=== PATIENT | male | born 1955 | race Caucasian/White ===

== ENCOUNTER 2024-07-29 08:35 | Outpatient (AMB) | payer MEDICARE, SELFPAY ==
--- NOTE | 2024-07-29 08:45 | A.SPINEOV_ITS ---
Vital Signs 07/29/24 08:54 Height 5 ft 10 in Weight 195 lb BMI 28.0 Intake Visit Reasons: neck and shoulder pain Intake Note: Mr. Vallejo is here today c/o neck and shoulder pain. [employer] Required: No Allergies No Known Allergies Allergy (Verified 07/29/24 08:53) Physical Exam Vital Signs: BMI result Body Mass Index 28.0 Assessment & Plan Assessment & Plan (1) Cervical radiculopathy: Code(s): M54.12 - Radiculopathy, cervical region Category: Medical (2) Syrinx of spinal cord: Code(s): G95.0 - Syringomyelia and syringobulbia Category: Medical Plan Dear Nicolasa, Thank you for referring Mr Vallejo to our office today. He is a very nice 68-year-old gentleman with a previous right C5-6 posterior cervical foraminotomy done by Dr. Coronel at [facility] about 15 years ago who presents now with a on and off persistent posterior neck pain radiating down across his shoulder into his mid biceps region. It has been going for 6 or 8 months pretty consistently bothering him. He has trouble getting positioned well at night. He once he is asleep he seems to do okay. He is very active, restoring at [address] and is able to do most activities throughout the day but it does bother him quite a bit at times. He takes Tylenol only because he can not take NSAIDs secondary to chronic kidney disease. He has had no dedicated conservative treatment. He had an MRI showing some degenerative disc disease and incidentally noted T2 syrinx. He sent to us for an evaluation. PMH: He has been a diabetic, insulin dependent for about 20 years, his A1c generally runs around the 7.5-8 range. History of hypertension, chronic kidney disease stage 3, history of a right shoulder surgery, previous cervical foraminotomy as outlined above. Denies any heart disease, strokes, liver disease, major abdominal surgeries, cancer, bleeding disorders Social hx: He does not smoke, drink use any recreational drugs Medications: Metformin, glimepiride, Lantus, Ozempic, simvastatin, lisinopril Allergies: None Physical exam: He is awake alert oriented no acute distress, strength is normal, gait normal, reflexes diminished throughout the upper and lower extremities, no hyperreflexia Imaging review: He has a cervical MRI done at the [facility] in April of 2024 showing degenerative disc disease of C5-6 and C6-7, worse at C5-6 where on the right there is a disc osteophyte compressing the right C6 nerve root. Incidentally noted 0.8 mm T2 spinal level syrinx. No associated edema with it. A follow-up contrast imaging study that was done in [place] did not reveal any evidence of enhancement. It was a poor quality study and a vertical upright MRI machine. Impression: 68-year-old gentleman with a previous history of a C5-6 posterior cervical foraminotomy done by Dr. Coronel about 15 years ago with good success now presents with similar recurrent symptoms but this time he has neck pain and it radiates down into his shoulder and mid biceps. He does have residual compre ssion of the C6 nerve root the C5-[address] Medeiros and I reviewed his imaging together, feel that this is probably part of the explanation of his symptoms, but he also has overlapping shoulder issues and is currently being worked up with Orthopedics for that. As long as we can exclude that the shoulder is not the primary source of his symptoms, we think he would be a good candidate for an anterior cervical fusion C5-6. We did however tell him that the insurance company will not approve surgery unless he participates in at minimum physical therapy. I gave him a referral for that. He will let me know how it goes with the PT and orthopedics consult and then we can arrange for surgery if needed. We did discuss all pertinent risks benefits of ACDF. With regard to the syrinx, he is currently having no active symptoms, no hyperreflexia no sensory loss. We suspect that this is an incidental finding but we will do our due diligence and do another MRI in 6 months just to follow this radiographically. It will be a thoracic MRI with and without gadolinium. He has anxiety issues in the MRI but I told him that the upright MRI that he had done in [place] was just too poor quality to trust it. I told him we would be happy to give him some Ativan or Valium to get through the MRI. He will let me know how he likes to proceed. Thank you for allowing us to care for your patient. The total time spent with this visit with this patient was 65 minutes reviewing history, physical exam, cervical and thoracic imaging review, and implementation of treatment plan or further diagnostic testing Addi Medeiros MD,PhD [facility] Orders: Orders PT Evaluation and Treatment Today M54.12 - Radiculopathy, cervical region Coding Level of Care Code New Pt Level 5 (14722) Diagnoses Cervical radiculopathy M54.12 Syrinx of spinal cord G95.0
[2024-07-29 08:54] VITALS: BMI 28.0
== END 2024-07-29 10:07 | disposition home or self-care (01) ==
PROVIDERS: Referring Provider Nurse Practitioner Family; Visit Provider Physician Assistant
DX: M54.12 Radiculopathy, cervical region (principal); G95.0 Syringomyelia and syringobulbia
CPT/HCPCS: 99205

== ENCOUNTER → 2024-07-29 08:35 | Outpatient (BNVA) | payer MEDICARE, SELFPAY | PROVIDERS: Visit Provider Physician Assistant | DX: M54.12 Radiculopathy, cervical region (principal); G95.0 Syringomyelia and syringobulbia | CPT/HCPCS: 99202 ==

== ENCOUNTER 2024-11-24 14:02 | Outpatient (AMB) | payer MEDICARE, SELFPAY ==
--- NOTE | 2024-11-24 14:06 | A.SPINEOV_ITS ---
Intake Visit Reasons: f/up after physical therapy Intake Note: Mr. Vallejo is here today to F/u after PT. 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 Please refer to my last note for the specifics of the problem. He had a previous right C6 foraminotomy done at [facility] by that did help when it was done a number of years ago, but now has had recurrent neck pain radiating down across his arm into his mid biceps region. He underwent physical therapy as we requested, and unfortunately that did not help. He continues to take Tylenol for the pain. He can not take Motrin because of limitations with his GFR and chronic kidney disease related to his diabetes. Last time we spoke with him, if conservative treatment failed we told him we would offer him an anterior cervical diskectomy and fusion at C5-6 based on [facility] showing some residual foraminal stenosis. The patient is back today and wishes to talk about surgery again. A secondary issue he had at the time was shoulder problems. He did go to the orthopedic doctor in this was excluded as part of his differential diagnosis. Also, he had a incidentally noted upper thoracic syrinx. He denies any symptoms of sensory loss, gait instability, bladder changes etc.. He was supposed to get a six- month follow-up MRI but he has severe anxiety about it, so it was never followed up. Overall, his gait and strength are normal. Not demonstrating any signs of hyperreflexia. We talked about the surgery in question for the cervical radiculopathy, specifically ACDF C5-6. All pertinent risks and benefits were discussed. The patient would like to proceed. We advised him to stop his Ozempic 1 week before surgery. Success rate was quoted at 90%. We will also follow up on the thoracic syrinx and try the open MRI at [facility] because he did not tolerate the 1 at the [facility]. Pt was given risk and benefits of surgery including but not limited to infection, hematoma , nerve injury,durotomy, weakness,bowel/bladder injury, persistent pain, vocal hoarseness and dysphagia as well as the option to continue with conservative treatment and patient wishes to proceed with surgery. All questions were answered to the best of our ability. If there is anything about this patients medical history that we have overlooked or concerns you have about us proceeding with surgery we would appreciate any input you can offer. Total amount of time spent in this visit was 20 minutes in discussion of symptoms, cervical MRI imaging results and subsequent plan of care Addi Medeiros MD,PhD [facility] Orders: Orders MR thoracic spine wo con Today G95.0 - Syringomyelia and syringobulbia Coding Level of Care Code Est Pt Level 3 (93429) Diagnoses Syrinx of spinal cord G95.0 Cervical radiculopathy M54.12
--- OUTSIDE RECORDS SUMMARY | 2024-11-24 15:07 | XMS_ITS | Data Portability ---
Author Organization [employer], DOT Address [address] [place] [address] Assessment No assessment recorded. Plan of Treatment Reminders Order Date Submit Date Provider Last Modified By Organization Details Last Modified Time Details Appointments ANNUAL EXAM 2024 09:15A M Murray Reyna MD Not available Not available Not available Lab TSH + free T4, serum 2023 024 [facility], [address] [address], [place], [address], 06/14/2024 08:03:39 Referral orthop edic surgeo n referr al 2023 024 [facility], [address] [place], [address], 06/08/2024 14:42:29 Procedures None record ed. Surgeries None record ed. Imaging US, thyroi d - He had a US of his thyroi d showin g The right lobe measur es 5.9 x 5.8 x 2.8 cm. Hetero genous and nodula r textur e change s redemo nstrat ed. AP diamet er the isthmu s is 0.5 cm. The left lobe measur es 5.0 x 1.9 x 2.0 cm. There is redemo nstrat ion of a 1.4 x 0.6 x 1.0 cm solid, isoech oic, wider than tall, smooth margin ated and noncal cified nodule (TR 3). Normal sonogr aphic appear ance of the thyroi d gland. Recomm endati ons: Follow -up thyroi d ultras ound in one year to contin ue to docume nt stabil ity recomm ended. 2023 025 [email or web address] Not available 06/07/2024 15:11:41 MRI, thorac ic spine, w/wo contra st - recent MRI of cervic al spine showin g 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 follow up MRI of the thorac ic spine with gadoli nium is recomm enced. 2023 024 [email or web address] Not available 06/21/2024 08:00:09 Medication Orders colchi cine 0.6 mg tablet 2023 024 [facility], [address] [place] [address], [address], 09/13/2024 08:35:48 predni sone 20 mg tablet 2023 024 [facility], [address] [place] [address], [address], 09/06/2024 11:12:50 Patient TargetsNo targets recorded. Patient InstructionsNo instructions recorded. Reason for Referral Orthopedic Surgeon Referral for Pain of right shoulder joint Referring Physician: Tavia Church, Family Medicine, Encounter Date: 06/07/2024 Results Created Date Observation Date Name Description Value Unit Range Abnormal Flag Note LastModifiedBy Organization Detail LastModifiedTime 06/01/20 24 06/01/2024 US, thyro id [facility] Diagno stic [facility] [employer] [address] [place] [address] Ultras ound Report Signed Patien t: Luis Bruce 6296 : [address]: Karri Church Age: 68 E.D. Attend ing: EMR ID: [id number] [facility]Red bateman MD - [facility] Acct: [id number] Admit/ Svc Date: Orderi ng Physic ibis: Karri Church , CERTIFIED SUBSTANCE ABUSE COUNSELOR-510 [facility] Date of Servic e: Proced ure(s) : US thyroi d Reason for Exam: subcli nical hypoth yroidi sm Access ion Number (s): [id number] Fax to: cc: Karri Church , CERTIFIED SUBSTANCE ABUSE COUNSELOR-510 [facility] US thyroi d 024 2:19 PM Techni que: Thyroi d ultras ound is perfor med in the axial and sagitt al plane with color flow evalua tion using a 12 MHz linear transd ucer. Compar giorgio exam: 017 and 2014 Findin gs: The right lobe measur es 5.9 x 5.8 x 2.8 cm. Hetero genous and nodula r textur e change s redemo nstrat ed. AP diamet er the isthmu s is 0.5 cm. The left lobe measur es 5.0 x 1.9 x 2.0 cm. There is redemo nstrat ion of a 1.4 x 0.6 x 1.0 cm solid, isoech oic, wider than tall, smooth margin ated and noncal cified nodule (TR 3). No abnorm al cervic al lymph nodes. Impres hector: Normal sonogr aphic appear ance of the thyroi d gland. Recomm endati ons: Follow -up thyroi d ultras ound in one year to contin ue to docume nt stabil ity recomm ended. Furthe r evalua tion and/or imagin g follow -up is recomm ended. Statio n: [id number] Electr onical ly signed on at 1200 by DO. GILMAR Machado [email or web address] [facility] [address] [place] [address], [address], 06/07/2024 14:47:42 06/01/2005/31/2024 US, thyro id No observ ation record ed. [email or web address] Not Available 2023 14:47:42 07/11/2007/11/2024 MRI, thora cic spine , w/wo contr ast No observ ation record ed. [email or web address] Not Available 2023 12:43:12 08/09/2007/12/2024 MRI, shoul lorri, w/ contr ast No observ ation record ed. [email or web address] [facility] ([facility]) [address], [place], [address], 09/06/2024 10:53:25 Result Notes Documentation Provider Name and Address Organization Details Recorded Time Mri, Thoracic Spine, W/wo Contrast : 0.8 cm syrinx at T2-3 Not Available [email or web address] 07/12/2024 12:43:12 Problems Name Problem SNOMED Code Status Onset Date Resolution Date Notes Provider Name and Address Organization Details Recorded Time Epididyma l swelling 057565660 Active 2022 Murray Reyna MD [address] [place] [address], [place], [address], [place] - PMA/WIP 3 14:12:53 Gout 22854652 Active 2023 Murray Reyna MD [address] [place] [address], [place], [address], [place] P[place]/WIP 4 08:31:40 Uncontrol led type 2 diabetes mellitus 053700637 Active 2018 Murray Reyna MD [address] [place] [address], [place], [address], [place] PMA/WIP 9 15:37:28 Steatohep atitis 218803329 Active 2018 Murray Reyna MD [address] [place] [address], [place], [address], [place] PMA/WIP 9 15:37:40 Right cervical root neuropath y 458160134404 53926 Active 2018 improved Murray Reyna MD [address] [place] [address], [place], [address], [place] PMA/WIP 9 15:38:08 Mixed hyperlipi demia 998378124 Active 2018 Murray Reyna MD [address] [place] [address], [place], [address], [place] PMA/WIP 9 15:38:19 Gastroeso phageal reflux disease without esophagit is 808179878 Active 2018 Murray Reyna MD [address] [place] [address], [place], [address], [place] PMA/WIP 9 15:38:29 Polyp of colon 79999380 Active 2018 scope 2010 repeat 2019 repeat 12/25 due 12/28 Murray Reyna MD [address] [place] [address], [place], [address], [place] PMA/WIP 3 11:20:51 Kidney stone 90449276 Active 2018 last 20 years ago Murray Reyna MD [address] [place] [address], [place], [address], [place] PMA/WIP 1 14:33:13 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 Procedures Surgical History Date Name Laterality Status Provider Name and Address Organization Details Recorded Time procedure on shoulder completed Murray Reyna MD [address] [place] [address], [place], [address], [place] PMA/WIP 05/16/2019 15:41:00 Cervical laminoplsty 2/> seg completed Murray Reyna MD [address] [place] [address], [place], [address], [place] PMA/WIP 05/16/2019 15:41:13 Vasectomy completed Murray Reyna MD [address] [place] [address], [place], [address], [place] P[place]/WIP 05/16/2019 15:41:32 Imaging Results Imaging Date Name Status LastModified by Organiz ation Details LastModified Time 06/01/2024 US, thyroid completed [email or web address] [facility] [address] [place] [address], [address], 06/07/2024 14:47:42 05/31/2024 US, thyroid completed [email or web address] Information n ot available 06/07/2024 14:47:42 07/11/2024 MRI, thoracic spine, w/wo contrast completed [email or web address] Information not available 07/12/2024 12:43:12 07/12/2024 MRI, shoulder, w/ contrast completed [email or web address] [employer] [email or web address] [facility] ([facility]) [address] [facility] [address], [place], [address], 09/06/2024 10:53:25 Procedure Notes None recorded. Medical Equipment None Reported. Allergies No known drug allergies Medications Name Sig Start Date Stop Date Status Note LastModified by Organization Details LastModified Time freestyle luzmaria 14 day/senso r/flash monitorin g system [facility] 09/30 completed Not Available Not Available Not Available doxycycli ne hyclate 100 mg tabs 09/13 completed Not Available Not Available Not Available glimepiri de 4 mg tabs 11/11 completed Not Available Not Available Not Available simvastat in 10 mg tabs 10/25 completed Not Available Not Available Not Available sure comfort insulin syringe/u -100/0.5m l/31g x 5/16 31g x 5/16 0.5 ml [facility] [place] 11/11 completed Not Available Not Available Not Available lisinopri l 5 mg tabs 02/20 completed Not Available Not Available Not Available trulicity 1.5 mg/0.5ml sopn 09/30 completed Not Available Not Available Not Available lantus 100 unit/ml soln 45 u per day 02/20 completed Not Available Not Available Not Available metformin hydrochlo ride 1000 mg tabs 11/11 completed Not Available Not Available Not Available metformin 500 mg tablet Take 0.5 tablets twice a day by oral route. active Not Available Not Available No t Available doxycycli ne hyclate 100 mg capsule Take 1 capsule twice a day by oral route for 14 days. 09/13 completed sent to wrong pharmacy . called & cancelle d Not Available Not Available Not Available azithromy sussy 250 mg tablet 11/12 completed Not Available Not Available Not Available lisinopri l 20 mg tablet TAKE ONE TABLET BY MOUTH EVERY DAY 11/11 completed Not Available Not Available Not Available prednison e 20 mg tablet Take 1 tablet every day by oral route. active Not Available Not Available No t Available simvastat in 10 mg tablet TAKE 1 TABLET EVERY DAY active Not Available Not Available No t Available Lantus U-100 Insulin 100 unit/mL subcutane ous solution INJECT 45 UNITS UNDER THE SKIN DAILY DIRECTED (PATIENT NEEDS TO BE SEEN BEFORE ANYMORE REFILLS) active Not Available Not Available No t Available penicilli n V potassium 500 mg tablet Take 1 tablet every 6 hours by oral route. 11/11 completed Not Available Not Available Not Available amlodipin e 5 mg tablet active Not Available Not Available Not Available oxycodone -acetamin ophen 5 mg-325 mg tablet 11/11 completed Not Available Not Available Not Available metformin 1,000 mg tablet TAKE 1 TABLET TWICE DAILY (NEED TO BE SEEN BEFORE NEXT REFILL) 09/06 completed Not Available Not Available Not Available lisinopri l 10 mg tablet Take 1 tablet every day by oral route for 90 days. active Not Available Not Available No t Available glimepiri de 4 mg tablet TAKE 1 TABLET EVERY 12 HOURS active now once a day Not Available Not Available Not Available indometha sussy 25 mg capsule Take 1 capsule 3 times a day by oral route for 5 days. 11/19 completed Not Available Not Available Not Available hydrochlo rothiazid e 12.5 mg capsule Take 1 capsule every day by oral route for 90 days. 08/09 completed Not Available Not Available Not Available lisinopri l 5 mg tablet TAKE ONE TABLET BY MOUTH EVERY DAY DIRECTED 02/20 completed Not Available Not Available Not Available lorazepam 1 mg tablet Take 1 tablet as needed by oral route, for anxiety during MRImay repeat once if necessar y. active Not Available Not Available No t Available colchicin e 0.6 mg tablet Take 1 tablet twice a day by oral route, for gout hold if diarrhea . active Not Available Not Available No t Available doxycycli ne hyclate 100 mg tablet Take 1 tablet twice a day by oral route for 14 days. 09/13 completed Not Available Not Available Not Available vardenafi l 10 mg tablet Take 1 tablet every day by oral route. active Not Available Not Available No t Available Lantus U-100 Insulin 06/14 completed 45 units Not Available Not Available Not Available BD Insulin Syringe Ultra-Fin e 0.5 mL 31 gauge x 5/16 USE TO INJECT 50 UNITS OF INSULIN DAILY active Not Available Not Available No t Available Invokana 100 mg tablet 05/16 completed Not Available Not Available Not Available Victoza 3-Aaron 0.6 mg/0.1 mL (18 mg/3 mL) subcutane ous pen injector 05/16 completed Not Available Not Available Not Available Trulicity 1.5 mg/0.5 mL subcutane ous pen injector 09/30 completed Not Available Not Available Not Available Droplet Pen Needle 32 gauge x 5 active Not Available Not Available Not Available Fiasp FlexTouch U-100 Insulin 100 unit/mL (3 mL) subcutane ous pen active 8 units tid Not Available Not Available Not Available Shingrix (PF) 50 mcg/0.5 mL intramusc ular suspensio n, kit ADM 0.5ML IM UTD active Not Available Not Available No t Available FreeStyle Luzmaria 10 Day Sensor kit 09/30 completed Not Available Not Available Not Available Dexcom G6 Sensor device active Not Available Not Available Not Available Dexcom G6 Transmitt er device active Not Available Not Available No t Available Afluria Quad (PF) 60 mcg (15 mcg x 4)/0.5 mL IM syringe active Not Available Not Available Not Available Lokelma 5 gram oral powder packet active Not Available Not Available Not Available Droplet Insulin Syringe (half unit) 0.5 mL 31 gauge x 5/16 active Not Available Not Available Not Available Fluzone Quad (PF) 60 mcg (15 mcg x 4)/0.5 mL IM syringe ADM 0.5ML IM UTD active Not Available Not Available No t Available Trulicity 3 mg/0.5 mL subcutane ous pen injector Inject 3 mg every week by subcutan eous route. 09/30 completed Not Available Not Available Not Available Trulicity 4.5 mg/0.5 mL subcutane ous pen injector INJECT 4.5 MG ( 0.5 ML ) SUBCUTAN EOUSLY ONCE A WEEK 01/12 completed Not Available Not Available Not Available Semglee (insulin glargine- yfgn) 100 unit/mL subcutane ous solution Inject by subcutan eous route for 88 days. 11/11 completed Not Available Not Available Not Available Ozempic 2 mg/dose (8 mg/3 mL) subcutane ous pen injector active Not Available Not Available Not Available Dexcom G7 Floor Sweeper active Not Available Not Available Not Available Vitals Date Recorded Body height Body mass index (BMI) Body weight Oxygen saturation Oxygen saturation in Arterial blood by Pulse oximetry Heart rate Systolic blood pressure Diastolic blood pressure Provider Name and Address Organization Details Last Updated DateTime 4 175.26 cm 29.7 kg/m2 48335.0 7 g 98 % 98 % 60 /min 138 mm[Hg] 60 mm[Hg] Amanda Baker [facility] - PMA/WIP 4 09:26:35 Date Recorded Body height Body mass index (BMI) Body weight Oxygen saturation Oxygen saturation in Arterial blood by Pulse oximetry Heart rate Systolic blood pressure Diastolic blood pressure Provider Name and Address Organization Details Last Updated DateTime 4 175.26 cm 30.3 kg/m2 79347.4 4 g 98 % 98 % 72 /min 138 mm[Hg] 88 mm[Hg] Amanda Baker [facility] - PMA/WIP 4 10:48:31 Date Recorded Body height Provider Name an d Address Organization Details Last Updated DateTime 09/13/2024 175.26 cm Murray Reyna MD [address] [place] [address], [address], [place], [address], [place] - PMA/WIP 09/13/2024 08:28:24 Social History None recorded. Functional Status None recorded. Mental Status None recorded. Family History Relationship Description Onset Age of this Age Resolved Age Notes LastModified by Organization Details LastModified Time Mother Diabetes mellitus [email or web address] Not available 2018 15:40:22 Brother Diabetes mellitus [email or web address] Not available 2018 15:40:22 Medical History No medical history recorded. Immunizations Vaccine Type Date Status Note Provider Nam e and Address Organization Details Recorded Time Influenza, split virus, quadrivalent, preservative 9 completed Not Available [facility] 09/21/2023 13:42:58 Pneumococcal conjugate PCV 13 9 completed Not Available [email or web address] 09/21/2023 13:42:58 Influenza, split virus, quadrivalent, PF 8 completed Not Available [facility] 09/21/2023 13:42:58 COVID-19, mRNA, LNP-S, PF, 100 mcg/0.5mL dose or 50 mcg/0.25mL dose 1 completed Not Available [facility] 09/21/2023 13:42:58 COVID-19, mRNA, LNP-S, PF, 100 mcg/0.5mL dose or 50 mcg/0.25mL dose 1 completed Not Available [facility] 09/21/2023 13:42:58 Influenza, split virus, quadrivalent, PF 0 completed Not Available [facility] 09/21/2023 13:42:58 zoster recombinant 0 completed Not Available [facility] 09/21/2023 13:42:58 Influenza, split virus, quadrivalent, PF 1 completed Not Available [facility] 09/21/2023 13:42:58 COVID-19, mRNA, LNP-S, PF, 100 mcg/0.5mL dose or 50 mcg/0.25mL dose 1 completed Not Available [facility] 09/21/2023 13:42:58 COVID-19, mRNA, LNP-S, PF, 100 mcg/0.5mL dose or 50 mcg/0.25mL dose 2 completed Not Available [facility] 09/21/2023 13:42:58 Pneumococcal conjugate PCV20, polysaccharide [id number] conjugate, adjuvant, PF 2 completed Not Available [facility] 09/21/2023 13:42:58 COVID-19, mRNA, LNP-S, bivalent, PF, 50 mcg/0.5 mL or 25mcg/0.25 mL dose 2 completed Not Available [facility] 09/21/2023 13:42:58 Influenza, split virus, quadrivalent, PF 2 completed Not Available [facility] 09/21/2023 13:42:58 Past Encounters Encounter ID Performer Location Encounter Start Date Encounter Closed Date Diagnosis/Indication Diagnosis SNOMED-CT Code Diagnosis ICD10 Code Diagnosis Note [id number] Murray Reyna MD [address] [address] 05/16/2019 14:40:02 05/17/2019 07:54:59 Essential hypertension 37363086 I10 bp checks, call with results; may need increase of lisinopril Anaplasmosis 60955744 A7 7.49 with vague viral symptoms will recheck tick borne panel Mixed hyperlipidemia 267 753803 E78.2 at goal ; cont simvastati n Uncontroll ed type 2 diabetes mellitus 902414335 E11.65 lantus trulicity f/u endocrine [id number] Murray Reyna MD [address] [address] 09/13/2019 09:02:23 09/14/2019 07:30:51 Essential hypertension 38450704 I10 bp checks, call with results; may need increase of lisinopril Gastroesop hageal reflux disease without esophagitis 202096346 K21.9 omeprazole Mixed hyperlipidemia 267 786175 E78.2 at goal ; cont simvastati n Uncontroll ed type 2 diabetes mellitus 543692712 E11.65 lantus trulicity f/u endocrine Loss of se nse of smell 84321058 R43.0 ENT eval [id number] Murray Reyna MD [address] [address] 02/21/2020 08:42:01 02/21/2020 14:42:12 Essential hypertension 29903380 I10 bp checks, call with results; increase of lisinopril ; Gastroesop hageal reflux disease without esophagitis 235568769 K21.9 omeprazole Mixed hyperlipidemia 267 557889 E78.2 at goal ; cont simvastati n Uncontroll ed type 2 diabetes mellitus 741260035 E11.65 lantus trulicity f/u endocrine; discussed diet / exercise relationsh ip Anaplasmosis 80193286 A7 7.49 no symptoms [id number] Murray Reyna MD [address] [place] [address] 06/15/2020 08:18:25 06/15/2020 09:26:11 Essential hypertension 71810183 I10 bp checks, call with results; increase of lisinopril ; Gastroesop hageal reflux disease without esophagitis 340187343 K21.9 omeprazole Mixed hyperlipidemia 267 627539 E78.2 at goal ; cont simvastati n Uncontroll ed type 2 diabetes mellitus 281381334 E11.65 lantus increased to 45; trulicity f/u endocrine; discussed diet / [place] [id number] Murray Reyna MD [address] [address] 10/25/2020 08:04:00 10/25/2020 14:41:29 Essential hypertension 11972281 I10 bp checks, call with results; increase of lisinopril ; Kidney stone 05987968 N2 0.0 none later Polyp of colon 61435111 K63.5 due 2024 Gastroesop hageal reflux disease without esophagitis 405664630 K21.9 omeprazole Mixed hyperlipidemia 267 967467 E78.2 at goal ; cont simvastati n Steatohepatitis 57323218 2 K75.81 lft's nl Uncontroll ed type 2 diabetes mellitus 188471662 E11.65 lantus increased to 45; trulicity f/u endocrine; discussed diet / [place] [id number] Murray Reyna MD [facility] [place] [address] [address] 02/08/2021 08:07:35 02/08/2021 10:45:34 Essential hypertension 83633410 I10 bp checks, call with results; increase of lisinopril ; Polyp of colon 53907366 K63.5 due 2024 Gastroesop hageal reflux disease without esophagitis 686614891 K21.9 omeprazole Mixed hyperlipidemia 267 267909 E78.2 at goal ; cont simvastati n Uncontroll ed type 2 diabetes mellitus 905552943 E11.65 lantus increased to 45; trulicity f/u endocrine; discussed diet / [place] [id number] Murray Reyna MD [facility] [place] [address] [address] 06/14/2021 08:02:35 06/14/2021 08:55:15 Essential hypertension 76606772 I10 bp checks, call with results; increase of lisinopril ; Kidney stone 68479260 N2 0.0 none later Gastroesop hageal reflux disease without esophagitis 707053369 K21.9 omeprazole Mixed hyperlipidemia 267 317378 E78.2 at goal ; cont simvastati n Uncontroll ed type 2 diabetes mellitus 115140497 E11.65 lantus increased to 45; trulicity f/u endocrine; discussed diet / exercise relationsh ip Steatohepatitis 02096124 2 K75.81 [place] [id number] [facility] [address] [address] 11/12/2021 08:04:27 11/12/2021 12:00:59 Kidney stone 03465678 N20.0 none later Polyp of colon 80430100 K63.5 due 2024 Gastroesop hageal reflux disease without esophagitis 665729783 K21.9 omeprazole Mixed hyperlipidemia 267 686149 E78.2 at goal ; cont simvastati n Uncontroll ed type 2 diabetes mellitus 758807533 E11.65 lantus increased to 45; trulicity f/u endocrine; discussed diet / exercise relationsh ipconsider increase in trulicity; patient lives in [place] would like referral to new endocrine [id number] Murray Reyna MD [place] [address] [address] 03/04/2022 08:08:46 03/04/2022 12:05:40 Essential hypertension 94419236 I10 bp checks, call with results; increase of lisinopril ; Kidney stone 92638122 N2 0.0 none later Gastroesop hageal reflux disease without esophagitis 693588730 K21.9 omeprazole Mixed hyperlipidemia 267 288406 E78.2 at goal ; cont simvastati n Uncontroll ed type 2 diabetes mellitus 242136645 E11.65 lantus increased to 45; trulicity f/u endocrine; discussed diet / exercise relationsh ipconsider increase in trulicity; patient lives in [place] would like data sent to new endocrine [id number] Murray Reyna MD [address] [address] 03/13/2022 12:55:43 03/13/2022 14:02:18 [id number] Murray Reyna MD [address] [address] 04/03/2022 11:23:35 04/04/2022 08:51:01 Essential hypertension 25043588 I10 bp checks, call with results; increase of lisinopril ; Mixed hyperlipidemia 267 586874 E78.2 at goal ; cont simvastati n Uncontroll ed type 2 diabetes mellitus 774717066 E11.65 increase trulicitym ay need to reduce glimepirid e if hypoglycem ia prior: lantus increased to 45; trulicity f/u endocrine; discussed diet / exercise relationsh ipconsider increase in trulicity; patient [place] would like data sent to new endocrine Erectile dysfunction 860 837185 F52.21 [id number] Murray Reyna MD [address] [address] 09/30/2022 10:55:09 09/30/2022 12:08:40 Essential hypertension 05095440 I10 bp checks, call with results; increase of lisinopril ; Kidney stone 33585530 N2 0.0 none later Polyp of colon 24666534 K63.5 due 2024 Gastroesop hageal reflux disease without esophagitis 644589387 K21.9 omeprazole Mixed hyperlipidemia 267 895732 E78.2 at goal ; cont simvastati n Right cerv ical root neuropathy 1399254236 6980970 G54.2 Uncontroll ed type 2 diabetes mellitus 289400896 E11.65 increase trulicitym ay need to reduce glimepirid e if hypoglycem ia prior: lantus increased to 45; trulicity f/u endocrine; discussed diet / exercise relationsh ipconsider increase in trulicity; patient lives in [place] would like data sent to new endocrine Steatohepatitis 49366725 2 K75.81 [place]l [id number] Murray Reyna MD [facility] [place] [address] [place] [address] 01/12/2023 10:45:43 01/12/2023 11:27:04 Essential hypertension 51649954 I10 bp checks, call with results; increase of lisinopril ; Kidney stone 98820350 N2 0.0 none later Gastroesop hageal reflux disease without esophagitis 590903728 K21.9 omeprazole Mixed hyperlipidemia 267 640282 E78.2 at goal ; cont simvastati n Right cerv ical root neuropathy [id number] 0590087 G54.2 Steatohepatitis 75192622 2 K75.81 lft's nl Uncontroll ed type 2 diabetes mellitus 931725276 E11.65 increase trulicitym ay need to reduce glimepirid e if hypoglycem ia prior: lantus increased to 45; trulicity f/u endocrine; discussed diet / exercise relationsh ipconsider increase in trulicity; patient [place] in [place] would like data sent to [facility] endocrine Spasm of back muscles 20 6315582 M62.830 discussed treatment declines pt at present [id number] Murray Reyna MD [address] [address] 03/26/2023 13:12:11 03/26/2023 14:48:09 Essential hypertension 74697176 I10 bp checks, call with results; increase of lisinopril ; Kidney stone 60701542 N2 0.0 none later Gastroesop hageal reflux disease without esophagitis 892532989 K21.9 omeprazole Mixed hyperlipidemia 267 066592 E78.2 at goal ; cont simvastati n Uncontroll ed type 2 diabetes mellitus 961643476 E11.65 increase trulicitym ay need to reduce glimepirid e if hypoglycem ia prior: lantus increased to 45; trulicity f/u endocrine; discussed diet / exercise relationsh ipconsider increase in trulicity; patient lives in [place] would like data sent to new endocrine Epididymal swelling 3008 61775 N50.89 prob cystcheck urine c & s 69256 VESNA Weaver [address] [place] [address] 11/11/2023 13:43:31 11/12/2023 09:36:34 Essential hypertension 34549808 I10 Medication s: lisinopril 10mg and HCTZ 12.5mg Gastroesop hageal reflux disease without esophagitis 055925920 K21.9 Stable on omeprazole Mixed hyperlipidemia 267 817962 E78.2 at goal ; cont simvastati n Uncontroll ed type 2 diabetes mellitus 279989046 E11.65 Medication s: glimepirid e 4mg bid, lantus 45 units in the night, metformin 1000mg and ozempic 2mg Gout 74172368 M10.9 67-year-ol d male presenting with severe pain in his right big toe that started two days ago. He describes the pain as sharp and unbearable , rating it as 8 out of 10 scott in the morning today. The patient mentions that his toe is swollen, red, and warm to touch. He has a history of similar episodes, with the last gout flare-up occurring about six months ago. The patient admits to a diet high in purine-joanne h foods and regular alcohol consumptio n. He denies any recent trauma, fever, or other systemic symptoms. Given the patient's history and current symptoms, the clinical diagnosis is an acute gout attack affecting the right big toe. - The patient is prescribed a course of non-steroi fawad anti-infla mmatory drugs (NSAIDs) for pain relief and to reduce inflammati on.- The patient is advised to rest, elevate the foot, and apply ice packs to the affected area.- He is also counseled on dietary modificati ons, including reducing intake of purine-joanne h foods and alcohol, and increasing fluid intake.- serum uric acid levels Benign ess ential hypertension 5696384 I10 Medication : lisinopril 10mg 88580 VESNA Weaver [address] [place] [address] 11/19/2023 08:03:33 11/20/2023 08:07:10 Hyperkalemia 35835017 E87.5 elevated potasiumta maria teresa HcTZ 12.5mg Chronic ki dney disease stage 3B 127706448 N18.32 elevated creatinine levelalso uric acid and potasiumGF R 40not on any nephrotoxi c medication sPMHx remarkable for HTN (lisinopri l, HCTZ), T2 DM, HLDpending labs on PTH, vitamin D, phosphorus , microalbum in and repeat CMP, uric acid Essential hypertension 09009110 I10 Medication s: lisinopril 10mg and HCTZ 12.5mg Gastroesop hageal reflux disease without esophagitis 300119685 K21.9 Stable on omeprazole Mixed hyperlipidemia 267 041757 E78.2 at goal ; cont simvastati n Uncontroll ed type 2 diabetes mellitus 490574302 E11.65 Medication s: glimepirid e 4mg bid, lantus 45 units in the night, metformin 1000mg and ozempic 2mg Gout 91652505 M10.9 67-year-ol d male presenting with severe pain in his right big toe that started two days ago. He describes the pain as sharp and unbearable , rating it as 8 out of 10 scott in the morning today. The patient mentions that his toe is swollen, red, and warm to touch. He has a history of similar episodes, with the last gout flare-up occurring about six months ago. The patient admits to a diet high in purine-joanne h foods and regular alcohol consumptio n. He denies any recent trauma, fever, or other systemic symptoms. Given the patient's history and current symptoms, the clinical diagnosis is an acute gout attack affecting the right big toe. - The patient is prescribed a course of non-steroi fawad anti-infla mmatory drugs (NSAIDs) for pain relief and to reduce inflammati on.- The patient is advised to rest, elevate the foot, and apply ice packs to the affected area.- He is also counseled on dietary modificati ons, including reducing intake of purine-joanne h foods and alcohol, and increasing fluid intake- serum uric acid levels elevated Benign ess ential hypertension 5916453 I10 Medication : lisinopril 10mg and HctZ 12.5mg 68703 Murray Reyna MD [address] [place] [address] 02/08/2024 12:53:23 02/08/2024 13:49:28 Essential hypertension 85956414 I10 bp checks, call with results; increase of lisinopril ; Kidney stone 06784855 N2 0.0 none later Polyp of colon 42764584 K63.5 due 2025 Gastroesop hageal reflux disease without esophagitis 451674221 K21.9 omeprazole Mixed hyperlipidemia 267 814294 E78.2 at goal ; cont simvastati n Steatohepatitis 64653201 2 K75.81 lft's nl Uncontroll ed type 2 diabetes mellitus 076271444 E11.65 ozempicmay need to reduce glimepirid e if hypoglycem ia prior: lantus increased to 45; trulicity f/u endocrine; discussed diet / exercise relationsh ipconsider increase in trulicity; patient lives in [place] would like data sent to [facility] [address] Tavia Church NP [address] [place] [address] 04/19/2024 09:52:13 04/20/2024 10:27:56 Pain of right shoulder joint 6277457387 6267633 M25.511 Hx of right shoulder pain with repair a referral to ortho will be made Cervical radiculopathy 86834582 M54.12 Hx of cervical discectomy in the past increased pain in neck with past few weeks with radicuopat hy down right arm to middle of bicept 08689 Tavia Church NP [address] [place] [address] 05/03/2024 09:11:44 05/03/2024 10:40:57 Pain of right shoulder joint 7625861366 4269537 M25.511 Hx of right shoulder pain with repair a referral to ortho will be made Cervical radiculopathy 77841945 M54.12 Hx of cervical discectomy in the past increased pain in neck with past few weeks with radiculopa thy down right arm to middle of bicep He states he did find another place in [facility] that has a open MRI. He states that the [place] [facility] [phone]. [address] Tavia Church NP [address] [place] [address] 05/17/2024 07:50:00 05/17/2024 15:02:46 Pain of right shoulder joint 0995711752 8310145 M25.511 Hx of right shoulder pain with repair a referral to ortho will be made Cervical radiculopathy 52668354 M54.12 C5-6 degenerati ve disc disease with mild central canal stenosis and right c6 nerve root encroachme nt. C6-7 degenerati ve disc disease with mild central canal stenosis. Enlarged hetergenso u thyroid gland containing multiple nodules. 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 He states that the [place] [facility] . Thyroid nodule 399752559 E04.1 Enlarged thryoid with multiple nodules was noted on a cervical MRI Thoracic back pain 77741 8004 M54.6 C5-6 degenerati ve disc disease with mild central canal stenosis and right c 6 nerve root encroachme nt. C6-7 degenerati ve disc disease with mild central canal stenosis. Enlarged hetergenso u thyroid gland containing multiple nodules. 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 25055 Murray Reyna MD [address] [place] [address] 05/20/2024 08:09:14 05/20/2024 13:51:50 Essential hypertension 77231021 I10 bp checks, call with results; increase of lisinopril ; Kidney stone 95451035 N2 0.0 none later Polyp of colon 67018382 K63.5 due 2025 Gastroesop hageal reflux disease without esophagitis 549542936 K21.9 omeprazole Mixed hyperlipidemia 267 951122 E78.2 at goal ; cont simvastati n Right cerv ical root neuropathy 4262370692 6713901 G54.2 Uncontroll ed type 2 diabetes mellitus 920762312 E11.65 ozempicmay need to reduce glimepirid e if hypoglycem ia prior: lantus increased to 45; trulicity f/u endocrine; discussed diet / exercise relationsh ipconsider increase in trulicity; patient lives in [place] would like data sent to [facility] endocrine Steatohepatitis 79883778 2 K75.81 lft's nl Anxiety 11919013 F41.9 26668 Tavia Church NP [address] [facility] [place] [address] 06/07/2024 08:27:55 06/07/2024 15:11:40 Pain of right shoulder joint 7791179040 4715566 M25.511 Hx of right shoulder pain he was seen by ortho He is pending a MRI Cervical radiculopathy 82054857 M54.12 C5-6 degenerati ve disc disease with mild central canal stenosis and right c6 nerve root encroachme nt. C6-7 degenerati ve disc disease with mild central canal stenosis. Enlarged hetergenso u thyroid gland containing multiple nodules. 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 He states that the company [employer] [address] [facility] [phone]. He will be going to [facility] for his repeat MRI on Jul Thyroid nodule 374519234 E04.1 Enlarged thryoid with multiple nodules was noted on a cervical MRI He had a US of his thyroid showing The right lobe measures 5.9 x 5.8 x 2.8 cm. Heterogeno us and nodular texture changes redemonstr ated.AP diameter the isthmus is 0.5 cm.The left lobe measures 5.0 x 1.9 x 2.0 cm. There is redemonstr ation of a 1.4 x 0.6 x 1.0 cm solid, isoechoic, wider than tall, smooth marginated and noncalcifi ed nodule (TR 3). Normal sonographi c appearance of the thyroid gland.Moiz mmendation s: Follow-up thyroid ultrasound in one year to continue to document stability [place]. Thoracic back pain 85282 8004 M54.6 C5-6 degenerati ve disc disease with mild central canal stenosis and right c 6 nerve root encroachme nt. C6-7 degenerati ve disc disease with mild central canal stenosis. Enlarged hetergenso u thyroid gland containing multiple nodules. 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 91978 Tavia Church NP [address] [facility] [place] [address] 07/12/2024 08:10:23 07/12/2024 14:43:19 Pain of right shoulder joint 0696503075 7054456 M25.511 Hx of right shoulder pain he was seen by ortho He is pending a MRI Cervical radiculopathy 55327617 M54.12 C5-6 degenerati ve disc disease with mild central canal stenosis and right c6 nerve root encroachme nt. C6-7 degenerati ve disc disease with mild central canal stenosis. Enlarged hetergenso u thyroid gland containing multiple nodules. 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 He states that the [facility] [address] [place] [address] . He will be going to [facility] for his repeat MRI on Jul Thyroid nodule 743853168 E04.1 Enlarged thryoid with multiple nodules was noted on a cervical MRI He had a US of his thyroid showing The right lobe measures 5.9 x 5.8 x 2.8 cm. Heterogeno us and nodular texture changes redemonstr ated.AP diameter the isthmus is 0.5 cm.The left lobe measures 5.0 x 1.9 x 2.0 cm. There is redemonstr ation of a 1.4 x 0.6 x 1.0 cm solid, isoechoic, wider than tall, smooth marginated and noncalcifi ed nodule (TR 3). Normal sonographi c appearance of the thyroid gland.Moiz mmendation s: Follow-up thyroid ultrasound in one year to continue to document stability recommende d. Thoracic back pain 11860 8004 M54.6 C5-6 degenerati ve disc disease with mild central canal stenosis and right c 6 nerve root encroachme nt. C6-7 degenerati ve disc disease with mild central canal stenosis. Enlarged hetergenso u thyroid gland containing multiple nodules. 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 follow up MRI of the thoracic spine with gadolinium is recommence d which was done withtout contrast 19859 Murray Reyna MD [address] [place] [address] 08/09/2024 09:23:23 08/09/2024 10:01:44 Essential hypertension 46038538 I10 bp checks, call with results; increase of lisinopril ; Gastroesop hageal reflux disease without esophagitis 665255617 K21.9 omeprazole Kidney stone 21882760 N2 0.0 none later Mixed hyperlipidemia 267 002744 E78.2 at goal ; cont simvastati n Uncontroll ed type 2 diabetes mellitus 254932188 E11.65 ozempicmay need to reduce glimepirid e if hypoglycem ia prior: lantus increased to 45; trulicity f/u endocrine; discussed diet / exercise relationsh ipconsider increase in trulicity; patient lives in [place] would like data sent to [facility] [address] Murray Reyna MD [address] [address] 09/06/2024 10:46:31 09/07/2024 10:44:29 Essential hypertension 51325378 I10 bp checks, call with results; increase of lisinopril ; Kidney stone 80819472 N2 0.0 none later Gastroesop hageal reflux disease without esophagitis 093461792 K21.9 omeprazole Mixed hyperlipidemia 267 643745 E78.2 at goal ; cont simvastati n Right cerv ical root neuropathy 9772243168 2025749 G54.2 Steatohepatitis 11238662 2 K75.81 lft's nl Uncontroll ed type 2 diabetes mellitus 148778535 E11.65 discussed treatment of increased bs with prednisone ozempicmay need to reduce glimepirid e if hypoglycem ia prior: lantus increased to 45; trulicity f/u endocrine; discussed diet / exercise relationsh ipconsider increase in trulicity; patient lives in [place] would like data sent to new endocrine Acute gout 407296973 M10 .9 39413 [facility] [place] [address] [place] [address] 09/13/2024 08:02:48 09/13/2024 08:44:44 Essential hypertension 01516065 I10 bp checks, call with results; increase of lisinopril ; Gastroesop hageal reflux disease without esophagitis 944107299 K21.9 omeprazole Mixed hyperlipidemia 267 684325 E78.2 at goal ; cont simvastati n Steatohepatitis 41186634 2 K75.81 lft's nl Uncontroll ed type 2 diabetes mellitus 105222239 E11.65 discussed treatment of increased bs with prednisone ozempicmay need to reduce glimepirid e if hypoglycem ia prior: lantus increased to 45; trulicity f/u endocrine; discussed diet / exercise relationsh ipconsider increase in trulicity; patient lives in [place] would like data sent to new endocrine Gout 21986641 M10.9 with prednisone 20 mg qd gout 75% better but blood sugar difficult to controlwil l try bid colchicine Health Concerns Section Related Observation LastModified by Organization Detai ls LastModified Time None Recorded Concern Status LastModified by Organization Details LastModified Time None Recorded Advance Directives Directive None Recorded Payers Encounter Date Sequence Insurance Name Policy Number Policy Valladares Covered Member ID Valladares Member ID Guarantor Name 06/07/2024 2 [employer] OPTIONS (MEDICARE SUPPLEMENT) Lonny Vallejo [id number] Lonny Vallejo 06/07/2024 1 [place] [email or web address] Lonny Vallejo [id number] Lonny Vallejo 07/12/2024 2 [employer] OPTIONS (MEDICARE SUPPLEMENT) Lonny Vallejo [id number] Lonny Vallejo 07/12/2024 1 [place] [employer] Lonny Vallejo [id number] Lonny Vallejo 08/09/2024 2 [employer] OPTIONS (MEDICARE SUPPLEMENT) Lonny Vallejo [id number] Lonny Vallejo 08/09/2024 1 [place]: [employer] Lonny Vallejo [id number] Lonny Vallejo 09/06/2024 2 [employer] OPTIONS (MEDICARE SUPPLEMENT) Lonny Vallejo [id number] Lonny Vallejo 09/06/2024 1 [place] [employer] Lonny Vallejo [id number] Lonny Vallejo 09/13/2024 2 [employer] OPTIONS (MEDICARE SUPPLEMENT) Lonny Vallejo [id number] Lonny Vallejo 09/13/2024 1 [place]: [facility] Lonny Vallejo [id number] Lonny Vallejo Notes Date Note Type Note Provider Name and Address Organization Details Recorded Time 06/07/2024 text/html Lonny is a 68 year old male patient who agrees to a tele visit He had a MRI done of his cervical spine showingC5-6 degenerative disc disease with mild central canal stenosis and right c 6 nerve root encroachment. C6-7 degenerative disc disease with mild central canal stenosis. Enlarged hetergensou thyroid gland containing multiple nodules. 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 Heterogenous and nodular texture changes redemonstrated.AP diameter the isthmus is 0.5 cm.The left lobe measures 5.0 x 1.9 x 2.0 cm. There is redemonstration of a 1.4 x 0.6 x 1.0 cm solid, isoechoic, wider than tall, smooth marginated and noncalcified nodule (TR 3). Normal sonographic appearance of the thyroid gland.Recommendations : Follow-up thyroid ultrasound in one year to continue to document stability recommended. Tavia Church NP [address] [facility], [address], [place], [address], [facility] 06/07/2024 15:03:39 07/12/2024 text/html Lonny is a 68 year old male patient who agrees to tele visit for follow up MRI thoracic spine. Lonny had had a cervical MRI done secondary to neck pain with radiculopathy the MRI showed C5-6 degenerative disc disease with mild central canal stenosis and right c 6 nerve root encroachment. C6-7 degenerative disc disease with mild central canal stenosis. Enlarged hetergensou thyroid gland containing multiple nodules. 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 The MRI of the thoracic spine was done without gadolinium showing 0.8 cm syrinx at level T2 and 3 and the disc protrusions at C5 -6 and C6-7 He had a US of his thyroid showing The right lobe measures 5.9 x 5.8 x 2.8 cm. Heterogenous and nodular texture changes redemonstrated, AP diameter the isthmus is 0.5 cm. The left lobe measures 5.0 x 1.9 x 2.0 cm. There is redemonstration of a 1.4 x 0.6 x 1.0 cm solid, isoechoic, wider than tall, smooth marginated and noncalcified nodule (TR 3). Normal sonographic appearance of the thyroid gland.He states he has a constant pain that is unchanged, no improvements or worsening pain. He denies further complaints He states he has been struggling with gout in his right foot, he states that he just drinks lots of water and avoids high purine foods. He states he feels like it better and almost resolved. He denies feeling depressed or anxious denies etoh misuse. He states he is sleeping well, even with the pain. Tavia Church NP [address] [facility], [address], [place], [address], [facility] 07/12/2024 13:49:18 08/09/2024 text/html doing well;still waiting for shoulder MRI results;now on low K+ dietbp goodhad shoulder MRI in [place] no results yet;having PT for shoulderHCTZ stoppedthyroid has multiple nodules Murray Reyna MD [address] [place] [address], [place], [address], [facility] 08/09/2024 09:59:18 09/06/2024 text/html doing well excep t right leg swelling and pain for one month;no fever;worse in the past 2-3 days; Murray Reyna MD [address] [place] [address], [place], [address], [facility] 09/06/2024 11:12:43 09/13/2024 text/html 75% better with prednisone but blood sugars up and down prior:doing well except right leg swelling and pain for one month;no fever;worse in the past 2-3 days; Murray Reyna MD [address] [place] [address], [place] [address], [place], [address], [facility] 09/13/2024 08:39:42
== END 2024-11-24 14:50 | disposition home or self-care (01) ==
PROVIDERS: Visit Provider Physician Assistant
DX: G95.0 Syringomyelia and syringobulbia (principal); M54.12 Radiculopathy, cervical region
CPT/HCPCS: 99213

== ENCOUNTER → 2024-11-24 14:02 | Outpatient (BNVA) | payer MEDICARE, SELFPAY | PROVIDERS: Visit Provider Physician Assistant | DX: M54.12 Radiculopathy, cervical region (principal); G95.0 Syringomyelia and syringobulbia | CPT/HCPCS: 99212 ==

== ENCOUNTER 2025-02-09 07:22 | Day surgery (SDC) | payer MEDICARE, SELFPAY ==
--- OUTSIDE RECORDS SUMMARY | 2025-02-01 13:20 | XMS_ITS | Data Portability ---
Author Organization [facility], [employer] Address [address] [place] [address] Assessment Encounter Date Assessment Date Assessment LastModified by Organization Details LastModified Time 12/27/2024 12/27/2024 ~reasonable to proceed forward with surgery ~ neck issues see hpi ~no dentures, partials or removable teeth ~can walk 4mph and climb stairs with out cardiac complaints ~no hx of allergic reactions to anesthesia ~no stated substance abuse to be concerned with ~riskcalculat [email or web address] RISK FACTORS: insulin dependent DM last A1c 7.7, HTN, HLD, renal disease gfr 45 [email or web address] Not available 12/27/2024 13:28:48 Plan of Treatment Reminders Order Date Submit Date Provider Last Modified By Organization Details Last Modified Time Details Appointments FOLLOW UP 15 2024 09:00A Pino Reyna MD Not available Not available Not available Lab None recorded. Referral None recorded. Procedures None recorded. Surgeries None recorded. Imaging None recorded. Medication Orders colchicin e 0.6 mg tablet 2023 [facility], [address] [place] [address], [address], 09/13/2024 08:35:48 prednison e 20 mg tablet 2023 024 [facility], [address] [place] [address], [address], 09/06/2024 11:12:50 Patient TargetsNo targets recorded. Patient InstructionsNo instructions recorded. Reason for Referral None Reported. Results Created Date Observation Date Name Description Value Unit Range Abnormal Flag Note LastModifiedBy Organization Detail LastModifiedTime 12/20/1912/19/2024 COMPL ETE BLOOD COUNT W/ DIFF white blood count 7.9 K/mm3 4.0-11 .0 normal Not Available [address], [address], 12/19/2024 13:55:20 12/20/19 25 12/19/2024 COMPL ETE BLOOD COUNT W/ DIFF red blood count 5.36 M/uL 4.20-5 .80 normal Not Available [address], [address], 12/19/2024 13:55:20 12/20/19 25 12/19/2024 COMPL ETE BLOOD COUNT W/ DIFF hemoglobin 14.9 gm/dL 12.5-1 7.0 normal Not Available [address], [address], 12/19/2024 13:55:20 12/20/19 25 12/19/2024 COMPL ETE BLOOD COUNT W/ DIFF hematocrit 44.7 % 37.0-5 0.0 normal Not Available [address], [address], 12/19/2024 13:55:20 12/20/19 25 12/19/2024 COMPL ETE BLOOD COUNT W/ DIFF mean corpuscular volume 83.4 fL 80.0-1 00.0 normal Not Available [address], [address], 12/19/2024 13:55:20 12/20/19 25 12/19/2024 COMPL ETE BLOOD COUNT W/ DIFF MCHC 33.3 % 32-37 normal Not Available [address], [address], 12/19/2024 13:55:20 12/20/19 25 12/19/2024 COMPL ETE BLOOD COUNT W/ DIFF red cell distribution width 14.2 % 11.5-1 6.0 normal Not Available [address], [address], 12/19/2024 13:55:20 12/20/19 25 12/19/2024 COMPL ETE BLOOD COUNT W/ DIFF platelet count 166 K/uL 140-40 0 normal Not Available [address], [address], 12/19/2024 13:55:20 12/20/19 25 12/19/2024 COMPL ETE BLOOD COUNT W/ DIFF mean platelet volume 11.4 fL 8.6-12 .5 normal Not Available [address], [address], 12/19/2024 13:55:20 12/20/19 25 12/19/2024 COMPL ETE BLOOD COUNT W/ DIFF %nucleated RBC auto 0.0 % 0.0-0. 7 normal Not Available [address], [address], 12/19/2024 13:55:20 12/20/19 25 12/19/2024 COMPL ETE BLOOD COUNT W/ DIFF %neutrophils auto 61.2 % Not Available [address], [address], 12/19/2024 13:55:20 12/20/19 25 12/19/2024 COMPL ETE BLOOD COUNT W/ DIFF %lymphocytes auto 23.2 % Not Available [address], [address], 12/19/2024 13:55:20 12/20/19 25 12/19/2024 COMPL ETE BLOOD COUNT W/ DIFF %monocytes auto 7.1 % Not Available [address], [address], 12/19/2024 13:55:20 12/20/19 25 12/19/2024 COMPL ETE BLOOD COUNT W/ DIFF %eosinophils auto 7.1 % Not Available [address], [address], 12/19/2024 13:55:20 12/20/19 25 12/19/2024 COMPL ETE BLOOD COUNT W/ DIFF %basophils auto 0.9 % Not Available [address], [address], 12/19/2024 13:55:20 12/20/19 25 12/19/2024 COMPL ETE BLOOD COUNT W/ DIFF %immature granulocytes auto 0.5 % Not Available [address], [address], 12/19/2024 13:55:20 12/20/19 25 12/19/2024 COMPL ETE BLOOD COUNT W/ DIFF #neutrophils auto 4.82 K/uL 1.50-7 .50 normal Not Available [address], [address], 12/19/2024 13:55:20 12/20/19 25 12/19/2024 COMPL ETE BLOOD COUNT W/ DIFF #lymphocytes auto 1.83 K/uL 1.00-4 .50 normal Not Available [address], [address], 12/19/2024 13:55:20 12/20/19 25 12/19/2024 COMPL ETE BLOOD COUNT W/ DIFF #monocytes auto 0.56 K/uL 0.00-0 .80 normal Not Available [address], [address], 12/19/2024 13:55:20 12/20/19 25 12/19/2024 COMPL ETE BLOOD COUNT W/ DIFF #eosinophils auto 0.56 K/uL 0.00-0 .40 high Not Available [address], [address], 12/19/2024 13:55:20 12/20/19 25 12/19/2024 COMPL ETE BLOOD COUNT W/ DIFF #basophils auto 0.07 K/uL 0.00-0 .20 normal Not Available [address], [address], 12/19/2024 13:55:20 12/20/19 25 12/19/2024 COMPL ETE BLOOD COUNT W/ DIFF #immature granulocytes auto 0.04 K/uL 0.00-0 .10 normal Not Available [address], [address], 12/19/2024 13:55:20 12/20/19 25 12/19/2024 COMPR EHENS KSIHAN METAB OLIC PANEL sodium 142 mEq/L 133-14 5 normal Not Available [address], [address], 12/19/2024 14:28:04 12/20/19 25 12/19/2024 COMPR EHENS KISHAN METAB OLIC PANEL potassium 4.5 mEq/L 3.5-5. 1 normal Not Available [address], [address], 12/19/2024 14:28:04 12/20/19 25 12/19/2024 COMPR EHENS KISHAN METAB OLIC PANEL chloride 109 mEq/L 98-112 normal Not Available [address], [address], 12/19/2024 14:28:04 12/20/19 25 12/19/2024 COMPR EHENS KISHAN METAB OLIC PANEL carbon dioxide 26 mEq/L 22-31 normal Not Available [address], [address], 12/19/2024 14:28:04 12/20/19 25 12/19/2024 COMPR EHENS KISHAN METAB OLIC PANEL anion gap 7 mEq/L 5-15 normal Not Available [address], [address], 12/19/2024 14:28:04 12/20/19 25 12/19/2024 COMPR EHENS KISHAN METAB OLIC PANEL blood urea nitrogen (BUN) 21 mg/dL 8-26 normal Not Available [address], [address], 12/19/2024 14:28:04 12/20/19 25 12/19/2024 COMPR EHENS KISHAN METAB OLIC PANEL creatinine 1.63 mg/dL 0.70-1 .18 high Not Available [address], [address], 12/19/2024 14:28:04 12/20/19 25 12/19/2024 COMPR EHENS KISHAN METAB OLIC PANEL est.glomerul ar filtration rate 46 Units : mL/mi n/1.7 3 m2 Estim ated GFR (eGFR ) shoul d not be used for patie nts with acute kidne y injur y or ESRD (crea tinin e shoul d be at stead y state and stabl e to use). eGFR is calcu lated using the Natio nal Kidne y Found ation 2020 CKD-E PI creat inine equat ion, which is now the recom raf d equat ion to estim ate GFR based on creat inine per lates t KDIGO (Kidn ey Disea se Impro ving Globa l Outco mes) Guide lines . KDIGO recom mends CKD now be class ified based on cause , GFR categ ory, and album inuri a categ ory. GFR categ ories will not be repor rene by the lab for G1 or G2 (eGFR >60). GFR categ ories shoul d be assig david as: eGFR 45-59 = G3a (mild ly to moder ately decre ased) , eGFR 30-44 = G3b (mode ratel y to sever ivy decre ased) , eGFR 15-29 G4 (leonard rely decre ased) , eGFR< 15 G5 (kidn ey failu re). Not Available [address], [address], 12/19/2024 14:28:04 12/20/19 25 12/19/2024 COMPR EHENS KISHAN METAB OLIC PANEL glucose 189 mg/dL 70-100 high Fasti ng Refer ence Inter vera: 70-10 0mg/d L Non-f astin g Refer ence Inter vera: 70-14 0mg/d L Not Available [address], [address], 12/19/2024 14:28:04 12/20/19 25 12/19/2024 COMPR EHENS KISHAN METAB OLIC PANEL calcium 9.5 mg/dL 8.4-10 .4 normal Not Available [address], [address], 12/19/2024 14:28:04 12/20/19 25 12/19/2024 COMPR EHENS KISHAN METAB OLIC PANEL bilirubin total 0.4 mg/dL 0.3-1. 2 normal Not Available [address], [address], 12/19/2024 14:28:04 12/20/19 25 12/19/2024 COMPR EHENS KISHAN METAB OLIC PANEL aspartate amino transferase 26 IU/L 11-34 normal Not Available [address], [address], 12/19/2024 14:28:04 12/20/19 25 12/19/2024 COMPR EHENS KISHAN METAB OLIC PANEL alanine aminotransfe rase 28 IU/L <45 Not Available [address], [address], 12/19/2024 14:28:04 12/20/19 25 12/19/2024 COMPR EHENS KISHAN METAB OLIC PANEL total protein 6.6 g/dL 5.8-8. 1 normal Not Available [address], [address], 12/19/2024 14:28:04 12/20/19 25 12/19/2024 COMPR EHENS KISHAN METAB OLIC PANEL albumin 4.0 g/dL 2.5-5. 0 normal Not Available [address], [address], 12/19/2024 14:28:04 12/20/19 25 12/19/2024 COMPR EHENS KISHAN METAB OLIC PANEL alkaline phosphatase 81 IU/L 40-150 normal Not Available [address], [address], 12/19/2024 14:28:04 12/20/19 25 12/19/2024 PHOSP HORUS phosphorus 2.8 mg/dL 2.5-4. 5 normal Not Available [facility] [address] [place], [address], 12/19/2024 14:28:05 07/11/20 24 07/11/2024 MRI, thora cic spine , w/wo contr ast No observ ation record ed. JALEESA Not Available 2023 12:43:12 08/09/20 24 07/12/2024 MRI, shoul lorri, w/ contr ast No observ ation record ed. [employer] [facility] [address], [place], [address], 09/06/2024 10:53:25 01/17/20 25 01/13/2025 US, renal No observ ation record ed. [employer] [facility] [address], [place], [address], 01/16/2025 12:01:46 Result Notes None recorded. Problems Name Problem SNOMED Code Status Onset Date Resolution Date Notes Provider Name and Address Organization Details Recorded Time Epididyma l swelling 446543984 Active 2022 Murray Reyna MD [address] [place] [address], [place], [address], [place] - PMA/WIP 3 14:12:53 Gout 50419583 Active 2023 Murray Reyna MD [address] [place] [address], [place], [address], [place] PMA/WIP 4 08:31:40 Uncontrol led type 2 diabetes mellitus 309000601 Active 2018 Murray Reyna MD [address] [place] [address], [place] [address], [place], [address], [place] - PMA/WIP 9 15:37:28 Steatohep atitis 495051342 Active 2018 Murray Reyna MD [address] [place] [address], [place], [address], [place] - PMA/WIP 9 15:37:40 Right cervical root neuropath y 496878298953 [address] Active 2018 improved Murray Reyna MD [address] [place] [address], [place], [address], [place] - PMA/WIP 9 15:38:08 Mixed hyperlipi demia 216649522 Active 2018 Murray Reyna MD [address] [place] [address], [place], [address], [place] PMA/WIP 9 15:38:19 Gastroeso phageal reflux disease without esophagit is 819645818 Active 2018 Murray Reyna MD [address] [place] [address], [place], [address], [place] PMA/WIP 9 15:38:29 Polyp of colon 05247085 Active 2018 scope 2010 repeat 2019 repeat 12/25 due 12/28 Murray Reyna MD [address] [place] [address], [place], [address], [place] PMA/WIP 3 11:20:51 Kidney stone 48157606 Active 2018 last 20 years ago Murray Reyna MD [address] [place] [address], [place], [address], [place] PMA/WIP 1 14:33:13 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 Procedures Surgical History Date Name Laterality Status Provider Name and Address Organization Details Recorded Time procedure on shoulder completed Murray Reyna MD [address] [facility], [address], [place], [address], [facility] - PMA/WIP 05/16/2019 15:41:00 Cervical laminoplsty 2/> seg completed Murray Reyna MD [address] [facility], [address] [facility], [place], [address], [facility] - PMA/WIP 05/16/2019 15:41:13 Vasectomy completed Murray Reyna MD [address] [facility], [address], [place], [address], [place] - PMA/WIP 05/16/2019 15:41:32 Imaging Results Imaging Date Name Status LastModified by Organiz ation Details LastModified Time 07/11/2024 MRI, thoracic spine, w/wo contrast completed JALEESA Information not available 07/12/2024 12:43:12 07/12/2024 MRI, shoulder, w/ contrast completed [facility] [facility] [address], [place], [address], 09/06/2024 10:53:25 01/13/2025 US, renal completed [facility] [address] [facility], [place], [address], 01/16/2025 12:01:46 Procedure Notes None recorded. Medical Equipment None Reported. Allergies No known drug allergies Medications Name Sig Start Date Stop Date Status Note LastModified by Organization Details LastModified Time freestyle luzmaria 14 day/senso r/flash monitorin g system misc 09/30 completed Not Available Not Available Not [...] sure comfort insulin syringe/u -100/0.5m l/31g x 02/17 31g x 02/17 0.5 ml misc 11/11 completed Not Available Not Available Not Available lantus 100 unit/ml soln 45 u per day 02/20 completed Not Available Not Available Not Available metformin hydrochlo ride 1000 mg tabs 11/11 completed Not Available Not Available Not Available lisinopri l 5 mg tabs 02/20 completed Not Available Not Available Not Available metformin 500 mg tablet Take 1 tablet twice a day by oral route for 90 days. 2024 active now 1 tab bid per patient renal conult said that as well Not Available Not Available Not Available doxycycli ne hyclate 100 mg capsule [...] Available simvastat in 10 mg tablet TAKE ONE TABLET BY MOUTH EVERY DAY 2024 active Not Available Not Available Not Avai lable Lantus U-100 Insulin 100 unit/mL subcutane ous solution INJECT 45 UNITS UNDER THE SKIN DAILY DIRECTED (PATIENT NEEDS TO BE SEEN BEFORE ANYMORE REFILLS) active Not Available Not Available No t Available torsemide 10 mg tablet active Not Available Not Available Not Available penicilli n V potassium 500 mg [...] t Available glimepiri de 4 mg tablet Take 1 tablet every day by oral route for 90 days. active Not Available Not Available No t Available losartan 25 mg tablet active Not Available Not Available Not Available indometha [...] Available Droplet Pen Needle 32 gauge x 5/32 active Not Available Not Available Not Available Fiasp FlexTouch U-100 Insulin 100 unit/mL (3 mL) subcutane ous pen active Not Available Not Available Not Available Shingrix [...] Available Not Available Not Available Dexcom G7 Scrubber Machine Tender active Not Available Not Available Not Available Vitals Date Recorded Body height Body mass index (BMI) Body weight Oxygen saturation Oxygen saturation in Arterial blood by Pulse oximetry Heart rate Systolic blood pressure Diastolic blood pressure Provider Name and Address Organization Details Last Updated DateTime 4 175.26 cm 29.7 kg/m2 32849.0 7 g 98 % 98 % 60 /min 138 mm[Hg] 60 mm[Hg] Meredith solares [place] - PMA/WIP 4 09:26:35 Date Recorded Body height Body mass index (BMI) Body weight Oxygen saturation Oxygen saturation in Arterial blood by Pulse oximetry Heart rate Systolic blood pressure Diastolic blood pressure Provider Name and Address Organization Details Last Updated DateTime 4 175.26 cm 30.3 kg/m2 19529.4 4 g 98 % 98 % 72 /min 138 mm[Hg] 88 mm[Hg] Amanda Baker [facility] [place] - PMA/WIP 4 10:48:31 Date Recorded Body height Provider Name an d Address Organization Details Last Updated DateTime 09/13/2024 175.26 cm Murray Reyna MD [address] [facility], [address], [place], [address], [place] - PMA/WIP 09/13/2024 08:28:24 Date Recorded Body height Body mass index (BMI) Body weight Oxygen saturation Oxygen saturation in Arterial blood by Pulse oximetry Heart rate Systolic blood pressure Diastolic blood pressure Provider Name and Address Organization Details Last Updated DateTime 5 175.26 cm 31.8 kg/m2 36927.5 1 g 97 % 97 % 73 /min 130 mm[Hg] 79 mm[Hg] Amanda Baker [facility] [place] - PMA/WIP 5 12:42:51 Social History None recorded. Functional Status None [...] virus, quadrivalent, preservative 9 completed Not Available [facility] 09/21/2023 13:42:58 Pneumococcal conjugate PCV 13 9 completed Not Available [facility] 09/21/2023 13:42:58 Influenza, split virus, quadrivalent, PF 8 completed Not Available [facility] 09/21/2023 13:42:58 COVID-19, mRNA, LNP-S, PF, 100 mcg/0.5mL dose or 50 mcg/0.25mL dose 1 completed Not Available [facility] 09/21/2023 13:42:58 COVID-19, mRNA, LNP-S, PF, 100 mcg/0.5mL dose or 50 mcg/0.25mL dose 1 completed Not Available [facility] 09/21/2023 13:42:58 Influenza, split virus, quadrivalent, PF 0 completed Not Available [facility] 09/21/2023 13:42:58 zoster recombinant 0 completed Not Available [facility] 09/21/2023 13:42:58 Influenza, split virus, quadrivalent, PF 1 completed Not Available [facility] 09/21/2023 13:42:58 COVID-19, mRNA, LNP-S, PF, 100 mcg/0.5mL dose or 50 mcg/0.25mL dose 1 completed Not Available [facility] 09/21/2023 13:42:58 COVID-19, mRNA, LNP-S, PF, 100 mcg/0.5mL dose or 50 mcg/0.25mL dose 2 completed Not Available [facility] 09/21/2023 13:42:58 Pneumococcal conjugate PCV20, polysaccharide NCK159 conjugate, adjuvant, PF 2 completed Not Available [facility] 09/21/2023 13:42:58 COVID-19, mRNA, LNP-S, bivalent, PF, 50 mcg/0.5 mL or 25mcg/0.25 mL dose 2 completed Not Available [facility] 09/21/2023 13:42:58 Influenza, split virus, quadrivalent, PF 2 completed Not Available [facility] 09/21/2023 13:42:58 Past Encounters Encounter ID Performer Location Encounter Start Date Encounter Closed Date Diagnosis/Indication Diagnosis SNOMED-CT Code Diagnosis ICD10 Code Diagnosis Note [id number] MD Francisco Zepeda [place] [address] [place] [address] 05/16/2019 14:40:02 05/17/2019 07:54:59 Essential hypertension 46538290 I10 bp checks, call with results; may need increase of lisinopril Anaplasmosis 95818245 A7 7.49 with vague viral symptoms will recheck tick borne panel Mixed hyperlipidemia 267 646796 E78.2 at goal ; cont simvastati n Uncontroll ed type 2 diabetes mellitus 586311762 E11.65 lantus trulicity f/u endocrine [id number] Murray Reyna MD [address] [address] 09/13/2019 09:02:23 09/14/2019 07:30:51 Essential hypertension 11828963 I10 bp checks, call with results; may need increase of lisinopril Gastroesop hageal reflux disease without esophagitis 401549485 K21.9 omeprazole Mixed hyperlipidemia 267 313319 E78.2 at goal ; cont simvastati n Uncontroll ed type 2 diabetes mellitus 137453429 E11.65 lantus trulicity f/u endocrine Loss of se nse of smell 91482282 R43.0 ENT eval [id number] Murray Reyna MD [address] [address] 02/21/2020 08:42:01 02/21/2020 14:42:12 Essential hypertension 34123731 I10 bp checks, call with results; increase of lisinopril ; Gastroesop hageal reflux disease without esophagitis 693216073 K21.9 omeprazole Mixed hyperlipidemia 267 933879 E78.2 at goal ; cont simvastati n Uncontroll ed type 2 diabetes mellitus 254469729 E11.65 lantus trulicity f/u endocrine; discussed diet / exercise [facility] ip Anaplasmosis 79117581 A7 7.49 no symptoms [id number] Murray Reyna MD [address] [address] 06/15/2020 08:18:25 06/15/2020 09:26:11 Essential hypertension 10633300 I10 bp checks, call with results; increase of lisinopril ; Gastroesop hageal reflux disease without esophagitis 876521134 K21.9 omeprazole Mixed hyperlipidemia 267 494081 E78.2 at goal ; cont simvastati n Uncontroll ed type 2 diabetes mellitus 037216874 E11.65 lantus increased to 45; trulicity f/u endocrine; discussed diet / [place] [id number] Murray Reyna MD [address] [place] [address] 10/25/2020 08:04:00 10/25/2020 14:41:29 Essential hypertension 14064904 I10 bp checks, call with results; increase of lisinopril ; Kidney stone 63697015 N2 0.0 none later Polyp of colon 42245551 K63.5 due 2024 Gastroesop hageal reflux disease without esophagitis 622360376 K21.9 omeprazole Mixed hyperlipidemia 267 402278 E78.2 at goal ; cont simvastati n Steatohepatitis 72912396 2 K75.81 lft's nl Uncontroll ed type 2 diabetes mellitus 377538024 E11.65 lantus increased to 45; trulicity f/u endocrine; discussed diet / [place] [id number] Murray Reyna MD [facility] [place] [address] [address] 02/08/2021 08:07:35 02/08/2021 10:45:34 Essential hypertension 29660023 I10 bp checks, call with results; increase of lisinopril ; Polyp of colon 74022964 K63.5 due 2024 Gastroesop hageal reflux disease without esophagitis 656686955 K21.9 omeprazole Mixed hyperlipidemia 267 291351 E78.2 at goal ; cont simvastati n Uncontroll ed type 2 diabetes mellitus 810960376 E11.65 lantus increased to 45; trulicity f/u endocrine; discussed diet / [place] [id number] Murray Reyna MD [facility] [place] [address] [address] 06/14/2021 08:02:35 06/14/2021 08:55:15 Essential hypertension 93798141 I10 bp checks, call with results; increase of lisinopril ; Kidney stone 31868227 N2 0.0 none later Gastroesop hageal reflux disease without esophagitis 834112736 K21.9 omeprazole Mixed hyperlipidemia 267 967087 E78.2 at goal ; cont simvastati n Uncontroll ed type 2 diabetes mellitus 445085656 E11.65 lantus increased to 45; trulicity f/u endocrine; discussed diet / exercise relationsh ip Steatohepatitis 69831502 2 K75.81 [place] [id number] MD Francisco Zepeda [address] [place] [address] 11/12/2021 08:04:27 11/12/2021 12:00:59 Kidney stone 33433992 N20.0 none later Polyp of colon 29961244 K63.5 due 2024 Gastroesop hageal reflux disease without esophagitis 750207458 K21.9 omeprazole Mixed hyperlipidemia 267 718516 E78.2 at goal ; cont simvastati n Uncontroll ed type 2 diabetes mellitus 203509487 E11.65 lantus increased to 45; trulicity f/u endocrine; discussed diet / exercise relationsh ipconsider increase in trulicity; patient lives in [place] would like referral to new endocrine [id number] Murray Reyna MD [facility] [place] [address] [place] [address] 03/04/2022 08:08:46 03/04/2022 12:05:40 Essential hypertension 92715040 I10 bp checks, call with results; increase of lisinopril ; Kidney stone 08258229 N2 0.0 none later Gastroesop hageal reflux disease without esophagitis 604795225 K21.9 omeprazole Mixed hyperlipidemia 267 049463 E78.2 at goal ; cont simvastati n Uncontroll ed type 2 diabetes mellitus 337295132 E11.65 lantus increased to 45; trulicity f/u endocrine; discussed diet / exercise relationsh ipconsider increase in trulicity; patient lives in [place] would like data sent to new endocrine [id number] MD Francisco Zepeda [address] [place] [address] 03/13/2022 12:55:43 03/13/2022 14:02:18 [id number] MD Francisco Zepeda [address] [place] [address] 04/03/2022 11:23:35 04/04/2022 08:51:01 Essential hypertension 72199458 I10 bp checks, call with results; increase of lisinopril ; Mixed hyperlipidemia 267 993792 E78.2 at goal ; cont simvastati n Uncontroll ed type 2 diabetes mellitus 143489725 E11.65 increase trulicitym ay need to reduce glimepirid e if hypoglycem ia prior: lantus increased to 45; trulicity f/u endocrine; discussed diet / exercise relationsh ipconsider increase in trulicity; patient lives in [place] would like data sent to new endocrine Erectile dysfunction 860 107283 F52.21 [id number] Murray Reyna MD [facility] [place] [address] [place] [address] 09/30/2022 10:55:09 09/30/2022 12:08:40 Essential hypertension 83604575 I10 bp checks, call with results; increase of lisinopril ; Kidney stone 74857451 N2 0.0 none later Polyp of colon 42977212 K63.5 due 2024 Gastroesop hageal reflux disease without esophagitis 275806381 K21.9 omeprazole Mixed hyperlipidemia 267 529039 E78.2 at goal ; cont simvastati n Right cerv ical root neuropathy 2356888330 3868985 G54.2 Uncontroll ed type 2 diabetes mellitus 419536614 E11.65 increase trulicitym ay need to reduce glimepirid e if hypoglycem ia prior: lantus increased to 45; trulicity f/u endocrine; discussed diet / exercise relationsh ipconsider increase in trulicity; patient lives in [place] would like data sent to new endocrine Steatohepatitis [id number] 2 [place]75[place] [address] Murray Reyna MD [address] [place] [address] [place] [address] 01/12/2023 10:45:43 01/12/2023 11:27:04 Essential hypertension 24805755 I10 bp checks, call with results; increase of lisinopril ; Kidney stone 77560721 N2 0.0 none later Gastroesop hageal reflux disease without esophagitis 328580317 K21.9 omeprazole Mixed hyperlipidemia 267 577011 E78.2 at goal ; cont simvastati n Right cerv ical root neuropathy [id number] 0048499 G54.2 Steatohepatitis 70498922 2 K75.81 lft's nl Uncontroll ed type 2 diabetes mellitus 553093158 E11.65 increase trulicitym ay need to reduce glimepirid e if hypoglycem ia prior: lantus increased to 45; trulicity f/u endocrine; discussed diet / exercise relationsh ipconsider increase in trulicity; patient lives in [place] would like data sent to [facility] Spasm of back muscles 20 4021316 M62.830 discussed treatment declines pt at present [address] Murray Reyna MD [address] [place] [address] 03/26/2023 13:12:11 03/26/2023 14:48:09 Essential hypertension 44365515 I10 bp checks, call with results; increase of lisinopril ; Kidney stone 18959244 N2 0.0 none later Gastroesop hageal reflux disease without esophagitis 749571411 K21.9 omeprazole Mixed hyperlipidemia 267 104138 E78.2 at goal ; cont simvastati n Uncontroll ed type 2 diabetes mellitus 965996479 E11.65 increase trulicitym ay need to reduce glimepirid e if hypoglycem ia prior: lantus increased to 45; trulicity f/u endocrine; discussed diet / exercise relationsh ipconsider increase in trulicity; patient lives in [place] would like data sent to [facility] endocrine Epididymal swelling 3008 78367 N50.89 prob cystcheck urine c & s 62097 Murray Reyna MD [facility] [place] [address] [place] [address] 11/11/2023 13:43:31 11/12/2023 09:36:34 Essential hypertension 57408331 I10 Medication s: lisinopril 10mg and HCTZ 12.5mg Gastroesop hageal reflux disease without esophagitis 499087731 K21.9 Stable on omeprazole Mixed hyperlipidemia 267 355787 E78.2 at goal ; cont simvastati n Uncontroll ed type 2 diabetes mellitus 140025977 E11.65 Medication s: glimepirid e 4mg bid, lantus 45 units in the night, metformin 1000mg and ozempic 2mg Gout 89483782 M10.9 67-year-ol d male presenting with severe [...] uric acid levels Benign ess ential hypertension 0962388 I10 Medication : lisinopril 10mg 65741 Murray Reyna MD [address] [address] 11/19/2023 08:03:33 11/20/2023 08:07:10 Hyperkalemia 66006979 E87.5 elevated potasiumta maria teresa HcTZ 12.5mg Chronic ki dney disease stage 3B 351560325 N18.32 elevated creatinine levelalso uric acid and potasiumGF R 40not on any nephrotoxi c medication sPMHx remarkable for HTN (lisinopri l, HCTZ), T2 DM, HLDpending labs on PTH, vitamin D, phosphorus , microalbum in and repeat CMP, uric acid Essential hypertension 62183249 I10 Medication s: lisinopril 10mg and HCTZ 12.5mg Gastroesop hageal reflux disease without esophagitis 138185832 K21.9 Stable on omeprazole Mixed hyperlipidemia 267 207192 E78.2 at goal ; cont simvastati n Uncontroll ed type 2 diabetes mellitus 687843832 E11.65 Medication s: glimepirid e 4mg bid, lantus 45 units in the night, metformin 1000mg and ozempic 2mg Gout 96470158 M10.9 67-year-ol d male presenting with severe [...] acid levels elevated Benign ess ential hypertension 3070196 I10 Medication : lisinopril 10mg and HctZ 12.5mg 24729 MD Francisco Zepeda [address] [address] 02/08/2024 12:53:23 02/08/2024 13:49:28 Essential hypertension 46563947 I10 bp checks, call with results; increase of lisinopril ; Kidney stone 23074548 N2 0.0 none later Polyp of colon 09499633 K63.5 due 2025 Gastroesop hageal reflux disease without esophagitis 318883941 K21.9 omeprazole Mixed hyperlipidemia 267 237123 E78.2 at goal ; cont simvastati n Steatohepatitis 19090074 2 K75.81 lft's nl Uncontroll ed type 2 diabetes mellitus 775550874 E11.65 ozempicmay need to reduce glimepirid e if hypoglycem ia prior: lantus increased to 45; trulicity f/u endocrine; discussed diet / exercise relationsh ipconsider increase in trulicity; patient lives in [place] would like data sent to [facility] [address] Tavia Church NP [address] [place] [address] 04/19/2024 09:52:13 04/20/2024 10:27:56 Pain of right shoulder joint 1820113603 6351848 M25.511 Hx of right shoulder pain with repair a referral to ortho will be made Cervical radiculopathy 04799941 M54.12 Hx of cervical discectomy in the past increased pain in neck with past few weeks with radicuopat hy down right arm to middle of bicept [address]32 Tavia Church NP [address] [address] 05/03/2024 09:11:44 05/03/2024 10:40:57 Pain of right shoulder joint 8789460697 1080393 M25.511 Hx of right shoulder pain with repair a referral to ortho will be made Cervical radiculopathy 88865090 M54.12 Hx of cervical discectomy in the past increased pain in neck with past few weeks with radiculopa thy down right arm to middle of bicep He states he did find another place in [facility] that has a open MRI. He states that the company [employer] [address] [place] [address] [phone] 00. 62930 Tavia Church NP [address] [address] 05/17/2024 07:50:00 05/17/2024 15:02:46 Pain of right shoulder joint 0659429980 7264576 M25.511 Hx of right shoulder pain with repair a referral to ortho will be made Cervical radiculopathy 32911415 M54.12 C5-6 degenerati ve disc disease with [...] states he did find another place in [facility] that has a open MRI. He states that the company [employer] [address] [facility] . Thyroid nodule 596934564 E04.1 Enlarged thryoid with multiple nodules was noted on a cervical MRI Thoracic back pain 43457 8004 M54.6 C5-6 degenerati ve disc disease with mild central canal stenosis and right c 6 nerve root encroachme nt. C6-7 degenerati ve disc disease with mild central canal stenosis. Enlarged hetergenso u thyroid gland containing multiple nodules. 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 24420 Murray Reyna MD [address] [place] [address] 05/20/2024 08:09:14 05/20/2024 13:51:50 Essential hypertension 41574283 I10 bp checks, call with results; increase of lisinopril ; Kidney stone 52864312 N2 0.0 none later Polyp of colon 15385386 K63.5 due 2025 Gastroesop hageal reflux disease without esophagitis 359675601 K21.9 omeprazole Mixed hyperlipidemia 267 125155 E78.2 at goal ; cont simvastati n Right cerv ical root neuropathy 2576675251 7613939 G54.2 Uncontroll ed type 2 diabetes mellitus 018830097 E11.65 ozempicmay need to reduce glimepirid e if hypoglycem ia prior: lantus increased to 45; trulicity f/u endocrine; discussed diet / exercise relationsh ipconsider increase in trulicity; patient lives in [place] would like data sent to new endocrine Steatohepatitis 38652671 2 K75.81 lft's nl Anxiety 73487872 F41.9 64514 Tavia Church NP [facility] [place] [facility] [address] [facility] [address] [place] [address] 06/07/2024 08:27:55 06/07/2024 15:11:40 Pain of right shoulder joint 0298106753 4567751 M25.511 Hx of right shoulder pain he was seen by ortho He is pending a MRI Cervical radiculopathy 54297721 M54.12 C5-6 degenerati ve disc disease with [...] states he did find another place in [facility] that has a open MRI. He states that the [employer] [address] [place] [address] . He will be going to [facility] for his repeat MRI on Jul Thyroid nodule 851587220 E04.1 Enlarged thryoid with multiple nodules was [...] document stability recommende d. Thoracic back pain 89062 8004 M54.6 C5-6 degenerati ve disc disease with mild central canal stenosis and right c 6 nerve root encroachme nt. C6-7 degenerati ve disc disease with mild central canal stenosis. Enlarged hetergenso u thyroid gland containing multiple nodules. 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 99543 Tavia Church NP [facility] [place] [address] [place] [address] 07/12/2024 08:10:23 07/12/2024 14:43:19 Pain of right shoulder joint 8932675740 8378670 M25.511 Hx of right shoulder pain he was seen by ortho He is pending a MRI Cervical radiculopathy 12666442 M54.12 C5-6 degenerati ve disc disease with [...] states he did find another place in [facility] that has a open MRI. He states that the [employer] [address] [place] [address] . He will be going to [facility] for his repeat MRI on Jul Thyroid nodule 331749459 E04.1 Enlarged thryoid with multiple nodules was [...] document stability recommende d. Thoracic back pain 73398 8004 M54.6 C5-6 degenerati ve disc disease [...] recommence d which was done withtout contrast 50891 MD Francisco Zepeda [place] [address] [place] [address] 08/09/2024 09:23:23 08/09/2024 10:01:44 Essential hypertension 61758479 I10 bp checks, call with results; increase of lisinopril ; Gastroesop hageal reflux disease without esophagitis 254118627 K21.9 omeprazole Kidney stone 69176102 N2 0.0 none later Mixed hyperlipidemia 267 200623 E78.2 at goal ; cont simvastati n Uncontroll ed type 2 diabetes mellitus 344918406 E11.65 ozempicmay need to reduce glimepirid e if hypoglycem ia prior: lantus increased to 45; trulicity f/u endocrine; discussed diet / exercise relationsh ipconsider increase in trulicity; patient lives in [place] would like data sent to [facility] [address] Murray Reyna MD [facility] [place] [address] [place] [address] 09/06/2024 10:46:31 09/07/2024 10:44:29 Essential hypertension 04104465 I10 bp checks, call with results; increase of lisinopril ; Kidney stone 95967804 N2 0.0 none later Gastroesop hageal reflux disease without esophagitis 413947468 K21.9 omeprazole Mixed hyperlipidemia 267 109680 E78.2 at goal ; cont simvastati n Right cerv ical root neuropathy 8088060046 8446527 G54.2 Steatohepatitis 65036852 2 K75.81 lft's nl Uncontroll ed type 2 diabetes mellitus 387611290 E11.65 discussed treatment of increased bs with prednisone ozempicmay need to reduce glimepirid e if hypoglycem ia prior: lantus increased to 45; trulicity f/u endocrine; discussed diet / exercise relationsh ipconsider increase in trulicity; patient lives in [place] would like data sent to [facility] endocrine Acute gout 912796698 M10 .9 27852 [facility] [place] [address] [place] [address] 09/13/2024 08:02:48 09/13/2024 08:44:44 Essential hypertension 49714178 I10 bp checks, call with results; increase of lisinopril ; Gastroesop hageal reflux disease without esophagitis 767114829 K21.9 omeprazole Mixed hyperlipidemia 267 814079 E78.2 at goal ; cont simvastati n Steatohepatitis 03856374 2 K75.81 lft's nl Uncontroll ed type 2 diabetes mellitus 253550929 E11.65 discussed treatment of increased bs with prednisone ozempicmay need to reduce glimepirid e if hypoglycem ia prior: lantus increased to 45; trulicity f/u endocrine; discussed diet / exercise relationsh ipconsider increase in trulicity; patient lives in [place] would like data sent to [facility] endocrine Gout 42267410 M10.9 with prednisone 20 mg qd gout 75% better but blood sugar difficult to controlwil l try bid colchicine 86566 [facility] [place] [address] [place] [address] 12/27/2024 12:38:02 12/27/2024 13:45:45 Essential hypertension 21643357 I10 bp checks, call with results; increase of lisinopril ; Mixed hyperlipidemia 267 452914 E78.2 at goal ; cont simvastati n Gastroesop hageal reflux disease without esophagitis 789252413 K21.9 omeprazole Uncontroll ed type 2 diabetes mellitus 375918621 E11.65 discussed treatment of increased bs with prednisone ozempicmay need to reduce glimepirid e if hypoglycem ia prior: lantus increased to 45; trulicity f/u endocrine; discussed diet / exercise relationsh ipconsider increase in trulicity; patient lives in [place] would like data sent to new endocrine Steatohepatitis 49396431 2 K75.81 lft's nl Kidney stone 20361858 N2 0.0 none later Gout 91492913 M10.9 with prednisone 20 mg qd gout 75% better but blood sugar difficult to controlwil l try bid colchicine Right cerv ical root neuropathy 9990104057 6643256 G54.2 surgery scheduled Health Concerns Section Related Observation LastModified by Organization Detai ls LastModified Time None Recorded Concern Status LastModified by Organization Details LastModified Time None Recorded Advance Directives Directive None Recorded Payers Encounter Date Sequence Insurance Name Policy Number Policy Valladares Covered Member ID Valladares Member ID Guarantor Name 07/12/2024 2 [employer] OPTIONS (MEDICARE SUPPLEMENT) Lonny Vallejo [id number] Lonny Vallejo 07/12/2024 1 [place] [employer] Lonny Vallejo [id number] Lonny Vallejo 08/09/2024 2 [employer] OPTIONS (MEDICARE SUPPLEMENT) Lonny Vallejo [id number] Lonny Vallejo 08/09/2024 1 [place] [employer] Lonny Avilezi [id number] Lonny Avilezi 09/06/2024 2 [employer] OPTIONS (MEDICARE SUPPLEMENT) Lonny Vallejo [id number] Lonny Vallejo 09/06/2024 1 [place] [employer] Lonny Vallejo [id number] Lonny Vallejo 09/13/2024 2 [employer] OPTIONS (MEDICARE SUPPLEMENT) Lonny Vallejo [id number] Lonny Vallejo 09/13/2024 1 [place] [employer] Lonny Vallejo [id number] Lonny Vallejo 12/27/2024 2 [employer] OPTIONS (MEDICARE SUPPLEMENT) Lonny Vallejo [id number] Lonny Vallejo 12/27/2024 1 [place] [employer] Lonny Vallejo [id number] Lonny Vallejo Notes Date Note Type Note Provider Name and Address Organization Details Recorded Time 07/12/2024 text/html Lonny is a 68 year [...] even with the pain. Tavia Church NP [address] [place] [address], [address], [facility] PMA/WIP 07/12/2024 13:49:18 08/09/2024 text/html doing well;still waiting for shoulder MRI results;now on low K+ dietbp goodhad shoulder MRI in [place] no results yet;having PT for shoulderHCTZ stoppedthyroid has multiple nodules Murray Reyna MD [address] [place] [address], [place], [address], [facility] - PMA/WIP 08/09/2024 09:59:18 09/06/2024 text/html doing well excep t right leg swelling and pain for one month;no fever;worse in the past 2-3 days; Murray Reyna MD [address] [place] [address], [place], [address], [facility] - PMA/WIP 09/06/2024 11:12:43 09/13/2024 text/html 75% better with prednisone but blood sugars up and down prior:doing well except right leg swelling and pain for one month;no fever;worse in the past 2-3 days; Murray eRyna MD [address] [place] [address], [place], [address], [place] - PMA/WIP 09/13/2024 08:39:42 12/27/2024 text/html preop for right cervical surgery at [facility];pain right upper arm and neckno numbnesshad prior surgery on the same shoulder/neckdoing well except for shoulder pain;saw renal recently for pre-opbs review average Murray Reyna MD [address] [place] [address], [address], [place], [address], [facility] - [facility]/WIP 12/27/2024 13:31:56
[2025-02-09] VITALS (9 sets, daily range): BP systolic 135–155; BP diastolic 60–80; PULSE 59–65; RESP 12–19; TEMP 36.1–36.6; O2SAT 93–98; BMI 30.2
--- NOTE | ~2025-02-09 | FL_ITS ---
EXAMINATION: FL GUIDANCE ONLY HISTORY: C5-6 ACDF COMPARISON: None available. TECHNIQUE: Fluoroscopy time: 3 seconds. Cumulative Dose: 1.6422 mGy. DAP: 0.4478 mGym2 Images: 2. FINDINGS: AP and lateral fluoroscopic spot films of the cervical spine demonstrate anterior cervical disc fusion at C5-6. FL/FL guidance in OR IMPRESSION: Fluoroscopy during procedure. Please see procedure report for additional information. Electronically signed by: Jose Perez MD 02/09/2025 12:34 PM EDT
[2025-02-09] MEDS: methocarbamoL 750 MG TABLET PO (07:50)
[2025-02-09] MEDS: Gabapentin 300 MG CAPSULE PO (07:50)
[2025-02-09] MEDS: Lactated Ringers 1,000 ML 100 ML IVCONT (07:55)
[2025-02-09 08:01] LABS: Glucose, Whole Blood 230 mg/dL (60-115)
--- NOTE | 2025-02-09 09:13 | MHC.SHP ---
Pre-Procedural Eval Section A - 24 Hr Update-Section A only Date of Service: 02/09/25 The patient is an INPATIENT: No Section B - Complete if H&P > 30 days Chief Complaint: Syringomyelia and syringobulbia Details of Present Illness: Cervical radiculopathy Allergies: Allergies Allergy/AdvReac Type Severity Reaction Status Date / Time No Known Allergies Allergy Verified 12/22/24 13:49 Review of Systems Sugical H&P ROS: Negative: Constitution, Cardiovascular, Respiratory, Neurological, Psychiatric, Hem-Onc, Allergic/Immunologic, Gastrointestinal, Genitourinary, Musculoskeletal, Integumentary, Endocrine and Eyes/Ears/Nose/Throat Exam Surgical H&P Exam: Normal: HEENT, Normal: Heart, Normal: Lungs, Normal: Extremities, Normal: Abdomen, Normal: Skin and Normal: Neurological (Awake, alert) Plan Diagnosis/Plan: Unchanged I have reviewed the history and physical and performed a pertinent physical examination on my patient. No changes have occurred unless specified. Anterior diskectomy and fusion C5-C6 Time Spent With Patient Time: Total time managing care of this patient today _4___ minutes.
--- NOTE | 2025-02-09 09:29 | HO.ANESPROP2 ---
Documented by User: Dottie Rose NP 02/07/25 13:44 HPI - Anesthesia Eval Consult details Narrative: 69yo M for C5-6 Ant Cerv Discectomy w/ fusion Medically optimized per PCP Anesthesia Pre-Procedure Meds Is the patient on any of the following meds?: GLP1/DPP4 PMFSH Active Problems Active Problems: All Active Problems Syrinx of spinal cord (Acute) Cervical radiculopathy (Acute) Past Medical History Medical History (Updated 12/22/24 @ 13:50 by Kim Calero RN) Gout CKD (chronic kidney disease), stage III PONV (postoperative nausea and vomiting) GERD (gastroesophageal reflux disease) Diabetes HLD (hyperlipidemia) HTN (hypertension) Surgical History Surgical History (Updated 12/22/24 @ 13:54 by Kim Calero RN) History of arthroscopy of right shoulder (~2014) Hx of colonoscopy Hx of cervical spine surgery (~2014) Social History Social History (Updated 12/22/24 @ 14:01 by Kim Calero RN) Household Members: Significant Other Housing: House Are you a primary vocational childcare teacher to a significant other at home: No Do you presently have visiting nurse or other home services: No Patient Tobacco Use Status: Former Tobacco user Tobacco use type: Cigarette Use of substances other than those prescribed or required for medical reasons: No Are you DNR?: No Advance Directives: No Advance Directives Information Provided: Yes Poor oral hygiene: No Meds Allergies Allergy/AdvReac Type Severity Reaction Status Date / Time No Known Allergies Allergy Verified 12/22/24 13:49 Home Medications ?Medication ?Instructions ?Recorded ?Confirmed ?Last Taken ?Type losartan 25 mg tablet 25 mg PO DAILY 12/21/24 12/22/24 Unknown History semaglutide 2 mg/dose (8 mg/3 mL) mg subcut QWEEK 12/21/24 01/29/25 History subcutaneous pen injector (Ozempic) torsemide 10 mg tablet 10 mg PO DAILY 12/21/24 12/22/24 02/09/25 History amlodipine 5 mg tablet 5 mg PO DAILY 12/22/24 12/22/24 Unknown History famotidine 20 mg tablet (Pepcid) 20 mg PO BID 12/22/24 12/22/24 02/09/25 History glimepiride 4 mg tablet 4 mg PO DAILY 12/22/24 12/22/24 Unknown History insulin aspart 16 unit subcut TID 12/22/24 12/22/24 Unknown History (niacinamide)(U-100) 100 unit/mL(3 mL) subcutaneous pen (Fiasp FlexTouch U-100 Insulin) insulin glargine 100 unit/mL (3 40 unit subcut .QNOON 12/22/24 12/22/24 Unknown History mL) subcutaneous pen (Lantus Solostar U-100 Insulin) metformin 500 mg tablet 500 mg PO BID 12/22/24 12/22/24 Unknown History simvastatin 10 mg tablet 10 mg PO DAILY 12/22/24 12/22/24 Unknown History Exam Height,Weight and Vital Signs: Height 5 ft 10 in Weight 92.986 kg Pertinent Lab Results Pertinent Lab Results: 12/2024 CBC and BMP from outside facility ok except creat 1.63 Narrative Narrative: EKG 12/2024 SR @ 63 Nonspecific T wave abn Assessment and Plan Assessment Anesthesia Assessment: Chart Reviewed Documented by User: Paris Hannon DO 02/09/25 09:30 HPI - Anesthesia Eval Anesthesia Pre-Procedure Meds Is the patient on any of the following meds?: GLP1/DPP4 [facility] Past Medical History Medical History (Updated 12/22/24 @ 13:50 by Kim Calero, ILENE) Gout CKD (chronic kidney disease), stage III PONV (postoperative nausea and vomiting) GERD (gastroesophageal reflux disease) Diabetes HLD (hyperlipidemia) HTN (hypertension) Family History Family history of problems with anesthesia: No Surgical History Surgical History (Updated 12/22/24 @ 13:54 by Kim Calero, ILENE) History of arthroscopy of right shoulder (~2014) Hx of colonoscopy Hx of cervical spine surgery (~2014) History of Problems with Anesthesia: Yes (PONV) Social History Social History (Updated 12/22/24 @ 14:01 by Kim Calero, ILENE) Household Members: Significant Other Housing: House Are you a primary vocational childcare teacher to a significant other at home: No Do you presently have visiting nurse or other home services: No Patient Tobacco Use Status: Former Tobacco user Tobacco use type: Cigarette Use of substances other than those prescribed or required for medical reasons: No Are you DNR?: No Advance Directives: No Advance Directives Information Provided: Yes Poor oral hygiene: No Meds Allergies Allergy/AdvReac Type Severity Reaction Status Date / Time No Known Allergies Allergy Verified 12/22/24 13:49 Home Medications ?Medication ?Instructions ?Recorded ?Confirmed ?Last Taken ?Type losartan 25 mg tablet 25 mg PO DAILY 12/21/24 12/22/24 Unknown History semaglutide 2 mg/dose (8 mg/3 mL) mg subcut QWEEK 12/21/24 01/29/25 History subcutaneous pen injector (Ozempic) torsemide 10 mg tablet 10 mg PO DAILY 12/21/24 12/22/24 02/09/25 History amlodipine 5 mg tablet 5 mg PO DAILY 12/22/24 12/22/24 Unknown History famotidine 20 mg tablet (Pepcid) 20 mg PO BID 12/22/24 12/22/24 02/09/25 History glimepiride 4 mg tablet 4 mg PO DAILY 12/22/24 12/22/24 Unknown History insulin aspart 16 unit subcut TID 12/22/24 12/22/24 Unknown History (niacinamide)(U-100) 100 unit/mL(3 mL) subcutaneous pen (Fiasp FlexTouch U-100 Insulin) insulin glargine 100 unit/mL (3 40 unit subcut .QNOON 12/22/24 12/22/24 Unknown History mL) subcutaneous pen (Lantus Solostar U-100 Insulin) metformin 500 mg tablet 500 mg PO BID 12/22/24 12/22/24 Unknown History simvastatin 10 mg tablet 10 mg PO DAILY 12/22/24 12/22/24 Unknown History Exam Exam Date and Time: 02/09/25927 Height,Weight and Vital Signs: Height 5 ft 10 in Weight 92.986 kg Vital Signs Temperature 97.8 F 02/09/25 07:44 Pulse Rate 65 02/09/25 07:44 Respiratory Rate 16 02/09/25 07:44 Blood Pressure 144/68 H 02/09/25 07:44 Pulse Oximetry 98 02/09/25 07:44 Oxygen Delivery Method Room Air 02/09/25 07:44 Temperature 97.8 F 02/09/25 07:44 Pulse Rate 65 02/09/25 07:44 Respiratory Rate 16 02/09/25 07:44 Blood Pressure 144/68 H 02/09/25 07:44 Pulse Oximetry 98 02/09/25 07:44 Oxygen Delivery Method Room Air 02/09/25 07:44 Airway Mallampati Class: III TM Dist: >3cm Neck ROM: Limited Loose/Missing/Broken Teeth: No (patient denies any loose or broken teeth) Heart: S1S2 Lungs: CTAB Assessment and Plan Assessment Anesthesia Assessment: Anesthesia Plan Discussed and Chart Reviewed Final Anesthetic Review Family History of Problems with Anesthesia: No History of Problems with Anesthesia: Yes (PONV) NPO: Yes ASA Class: II Final Preanesthetic Review: No Changes in Pt Med Stat, Meds/Allgs Chart Reviewed, Consent Obtained/Reviewed and Anes Risks/Benef Reviewed Patient Risk: Low Procedure Risk: Intermediate Anesthetic Plan Anesthetic Plan: GA and Agree w/ Assess. and Plan Disposition: Standard PACU
[2025-02-09] MEDS: ceFAZolin Sodium/Dextrose,Iso 2 GM/50 ML PIGGYBACK IV (10:30)
[2025-02-09] MEDS: Acetaminophen 1,000 MG/100 ML PIGGYBACK 400 MG IV (10:30)
--- NOTE | 2025-02-09 10:51 | PM.DS ---
DS: Providers Provider Date of Service: 02/09/25 Date of discharge: 02/09/25 Primary care physician: CARO ALLEN MD Admitting clinician: Heath Medeiros DS: Diagnosis Discharge Diagnosis (1) Cervical radiculopathy: Status: Acute DS: Summary Time Attestation Discharge Coordination Time (in mins): 5 Quality: Safe Use of Opioids Does Pt have an Active Cancer Diagnosis on the Problem List?: No Quality: Stroke Does the patient have a stroke diagnosis?: No Physical Exam Vital Signs: Vital Signs: Last Vital Signs Temp 97.8 F 02/09/25 07:44 Pulse 65 02/09/25 07:44 Resp 16 02/09/25 07:44 BP 144/68 H 02/09/25 07:44 Pulse Ox 98 02/09/25 07:44 O2 Del Method Room Air 02/09/25 07:44 BMI result Body Mass Index 30.2 DS: Data Data Completed and Pending Labs on day of discharge: Laboratory Results - last 24 hr 02/09/25 07:57 POC Glucose 230 H Discharge Plan Discharge Patient Disposition: Home, Self-Care Referrals: CARO ALLEN [Primary Care Provider] - 1 Week Discharge Medications: New oxycodone 5 mg tablet 5 mg PO Q4H PRN (Reason: pain) Qty: 20 0RF Rx Instructions: Partial Fill upon patient request. docusate sodium [Colace] 100 mg capsule 100 mg PO BID Qty: 20 0RF Continued torsemide 10 mg tablet 10 mg PO DAILY losartan 25 mg tablet 25 mg PO DAILY Ozempic 2 mg/dose (8 mg/3 mL) pen injector SUBCUT QWEEK metformin 500 mg Tablet 500 mg PO BID simvastatin 10 mg Tablet 10 mg PO DAILY amlodipine 5 mg Tablet 5 mg PO DAILY famotidine [Pepcid] 20 mg Tablet 20 mg PO BID insulin glargine [Lantus Solostar U-100 Insulin] 100 unit/mL (3 mL) Insulin Pen 40 unit SUBCUT .QNOON Fiasp FlexTouch U-100 Insulin 100 unit/mL (3 mL) insulin pen 16 unit SUBCUT TID glimepiride 4 mg Tablet 4 mg PO DAILY Discharge Orders: Discharge Order (Routine); Ordered 02/09/25 Ordered By: Addi Garcia Diet: Advance to usual diet Activity on Discharge: As tolerated Activity Restrictions/Additional Instructions: After your spinal surgery we ask you to observe the following restrictions/guidelines: Activity: It is normal to feel some discomfort as you increase your activity, but that will improve with time. We ask you avoid heavy lifting or acitivities that cause pain. As a general rule, 8lbs is a safe limit for lifting right after surgery. Walk as much as you feel comfortable but not to exhaustion. You will feel extra tired the first few days after surgery. Stay well hydrated. It is OK to walk up and down stairs You may return to driving when you are off narcotics (such as vicodin, oxycodone, dilaudid, etc), and you are back to normal functional capacity. If you have any concerns please check with office before driving. Return to work is specific to each patient and each surgery, so please speak with your doctor/PA at first follow up. Please bring paperwork such as FMLA at that time if you need it filled out. Medications: For optimum pain control, it is best to start with a combination of 500 mg of Tylenol every 4 hours with 600 mg of Motrin every 8 hours, and use narcotics as needed in between for breakthrough pain. We will give you a short supply of narcotics after surgery (usually one weeks worth). If you need more please call the office but do not use more than prescribed. You will need to give our office 48 hours notice if you need narcotics refilled and we do not fill narcotics on weekends or evenings. If you are on a narcotic, it is a good idea to take a stool softener such as colace or senna to avoid constipation If you take blood thinner such as aspirin, Plavix, Coumadin, Effient, Eliquis etc for conditions such as Afib, DVT, Pulmonary embolus, coronary disease, stents etc please speak with your surgeon about specific details as to when you can resume these medications. You can resume NSAIDs on post op day 1 (eg: Motrin, Naproxen, etc). Follow up: Please call the office, , after surgery to arrange a 3 week follow up for wound check. Wound Care: You may remove your dressing on the first day after surgery. ?You may ?leave open to air. Please do not remove the steri strips underneath. they will fall off on their own in one week. IT IS NORMAL FOR THE WOUND TO OOZE OR BE BLOODY FOR A FEW DAYS AFTER SURGERY. ?IF THIS HAPPENS JUST PLACE NEW DRESSING OVER IT TO AVOID STAINING CLOTHES. You may shower on post op day # 1 We ask that you do not let the water soak the wound. If it does get wet, just towel dry lightly. Please do not scrub your incision or place any type of chemical/ointment on the wound. No tub baths, pools or jacuzzis for one month. If you have any leaking or redness from your wound, or fevers, please call office Print Language: Amharic
--- NOTE | 2025-02-09 11:49 | P.OP_ITS ---
Operative Note Operative Note Date of Service: 02/09/25 Narrative: Preoperative Diagnosis: Cervical radiculopathy, right side Procedure: C5-6 Anterior discectomy, arthrodesis and implantation cage ; C5-6 anterior instrumentation ; local autograft; microscope Informed Consent was obtained for this operation. I have explained the nature, purpose and benefits of the operation. I have discussed the risks and benefit of the operation including possible complications or adverse events with patient/family. Alternative(s) were discussed with the patient with their relative benefits and risks as well as the consequences of not accepting the operation were included in obtaining consent. Surgeon: AGUSTIN CROCKETT MD, PHD Procedure Assisted By: eze Minaya Description of Procedure: This patient is suffering from a right cervical radiculopathy due to large osteophyte compressing the right C6 nerve root. The patient was offered an anterior diskectomy and fusion C5-6. The procedure complications were explained. The patient was consented. The patient was brought to the operating room and endotracheally intubated. The patient was put in supine position with slight extension of the neck. Prep and drape was done followed by timeout. A mid cervical incision was made followed by opening of the platysma. The prevertebral fascia was reached following the natural planes while the physician library clerical assistant provided manual retraction. The prevertebral fascia was opened to expose the disc space. A spinal needle was placed in the disk space to confirm the correct level with xray. The longus colli muscles were released bilaterally and a self retaining retractor was inserted. Two [place] pins were placed in the C5 and C6 vertebral bodies and distraction was give over the interspace. The discectomy was completed toward the posterior annulus of the disc. The microscope was b rought in. The remainder of the discectomy was completed. The posterior ligament was opened and resected to expose the underlying dura. Osteophytes were resected from the body of C5 and C6 and saved for autograft. Bilateral foraminotomies were done. Significant right foraminal stenosis was present. The endplates were prepared after which a 6 mm cage filled with autograft was inserted into the disc space. A separate attached plate was locked down with 2 x 14 mm screws as anterior instrumentation. Final x-rays in AP and lateral projection showed a satisfactory position of the implant. The physician library clerical assistant took over. The [place] pin was removed. Hemostasis was done. He closed the incision in 2 layers with a 3-0 Vicryl. Steri-Strips used to approximate incision. An OpSite with Tegaderm was used to cover the incision. All sponge and needle counts were correct. Patient was extubated and transported in stable is to recovery room. Anesthesia: General Estimated Blood Loss (ml): 10 mL Duration of Surgery: 55 minutes Postoperative Plan: Discharge home Complications: None
[2025-02-09] MEDS: droPERidol 5 MG/2 ML VIAL 0.625 MG IVPUSH (12:59)
[2025-02-09] MEDS: Ondansetron ODT 4 MG TAB.RAPDIS TRANSLINGU (13:27)
== END 2025-02-09 14:29 | disposition home or self-care (01) ==
PROVIDERS: PCP Internal Medicine; Visit Provider Neurological Surgery
PROC: (CPT 22551; principal; 2025-02-09 10:20)
DX: G95.0 Syringomyelia and syringobulbia (principal); M54.12 Radiculopathy, cervical region
CPT/HCPCS: 22551; 22853; 22845; 20936; 82947; C1713; J0131; J0690; J1100; J1790; J2003; J2250; J2405; J2704; J3010

== ENCOUNTER → 2025-02-09 07:22 | Outpatient (BNV) | payer MEDICARE, SELFPAY | PROVIDERS: PCP Internal Medicine; Visit Provider Neurological Surgery | DX: M54.12 Radiculopathy, cervical region (principal) | CPT/HCPCS: 20936; 22551; 22845; 22853; 99499 ==

== ENCOUNTER 2025-03-02 10:48 | Outpatient (AMB) | payer MEDICARE, SELFPAY ==
--- NOTE | 2025-03-02 10:59 | A.SPINEOV_ITS ---
Intake Visit Reasons: 1st post op Intake Note: Mr. Vallejo is here today for his 1st post op. Associate Medical Director Required: No Allergies No Known Allergies Allergy (Verified 03/02/25 11:00) Assessment & Plan Assessment & Plan (1) Cervical radiculopathy: Code(s): M54.12 - Radiculopathy, cervical region Category: Medical Plan Procedure: C5-6 ACDF Lonny is a pleasant 69 year old male who underwent C5-6 ACDF on 02/09/[address] Medeiros. To recap he was initially evaluated in clinic for shooting pains down his right upper extremity. Unfortunately he continues to report the same right sided arm pain he had prior to his operation. He reports that has not as of yet had any pain relief or symptom improvement. We discussed the postoperative healing course, and I answered any questions he had. I am hopeful that he is still in the acute postoperative healing period, and may be dealing with some postoperative inflammation at this time. Ideally symptoms will begin to improve soon. No new neurological deficits. The patient ambulates well and rises from a seated position without difficulty. His anterior incision site is closed and well healing. I would like to follow up with Lonny again in 6 weeks and obtain a set of x- rays for his 2nd postoperative visit. John Medeiros MD,PhD [facility] Coding Level of Care Code Global (11546) Diagnoses Cervical radiculopathy M54.12
--- OUTSIDE RECORDS SUMMARY | 2025-03-02 11:17 | XMS_ITS | Data Portability ---
Author Organization [employer], DOT Address [address] [place] [address] Assessment Encounter Date Assessment Date Assessment LastModified [...] Orders colchicin e 0.[address] [facility], [address] [place] [address], [address], 09/13/2024 08:35:48 prednison e 20 mg tablet 2023 024 [facility], [address] [place] [address], [address], 09/06/2024 11:12:50 Patient TargetsNo targets recorded. Patient InstructionsNo instructions recorded. Reason for Referral None Reported. Results Created Date Observation Date Name Description Value Unit Range Abnormal Flag Note LastModifiedBy Organization Detail LastModifiedTime 12/20/1912/19/2024 COMPL ETE BLOOD COUNT W/ DIFF white blood count 7.9 K/mm3 4.0-11 .0 normal Not Available [address], [address], 12/19/2024 13:55:20 12/20/19 25 12/19/2024 COMPL ETE BLOOD COUNT W/ DIFF red blood count 5.36 M/uL 4.20-5 .80 normal Not Available [address], [address], 12/19/2024 13:55:20 12/20/19 25 12/19/2024 COMPL ETE BLOOD COUNT W/ DIFF hemoglobin 14.9 gm/dL 12.5-1 7.0 normal Not Available [address], [address], 12/19/2024 13:55:20 12/20/19 25 12/19/2024 COMPL ETE BLOOD COUNT W/ DIFF hematocrit 44.7 % 37.0-5 0.0 normal Not Available [address], [address], 12/19/2024 13:55:20 12/20/19 25 12/19/2024 COMPL ETE BLOOD COUNT W/ DIFF mean corpuscular volume 83.4 fL 80.0-1 00.0 normal Not Available [address], [address], 12/19/2024 13:55:20 12/20/19 25 12/19/2024 COMPL ETE BLOOD COUNT W/ DIFF MCHC 33.3 % 32-37 normal Not Available [address], [address], 12/19/2024 13:55:20 12/20/19 25 12/19/2024 COMPL ETE BLOOD COUNT W/ DIFF red cell distribution width 14.2 % 11.5-1 6.0 normal Not Available [address], [address], 12/19/2024 13:55:20 12/20/19 25 12/19/2024 COMPL ETE BLOOD COUNT W/ DIFF platelet count 166 K/uL 140-40 0 normal Not Available [address], [address], 12/19/2024 13:55:20 12/20/19 25 12/19/2024 COMPL ETE BLOOD COUNT W/ DIFF mean platelet volume 11.4 fL 8.6-12 .5 normal Not Available [address], [address], 12/19/2024 13:55:20 12/20/19 25 12/19/2024 COMPL ETE BLOOD COUNT W/ DIFF %nucleated RBC auto 0.0 % 0.0-0. 7 normal Not Available [address], [address], 12/19/2024 13:55:20 12/20/19 25 12/19/2024 COMPL ETE BLOOD COUNT W/ DIFF %neutrophils auto 61.2 % Not Available [address], [address], 12/19/2024 13:55:20 12/20/19 25 12/19/2024 COMPL ETE BLOOD COUNT W/ DIFF %lymphocytes auto 23.2 % Not Available [address], [address], 12/19/2024 13:55:20 12/20/19 25 12/19/2024 COMPL ETE BLOOD COUNT W/ DIFF %monocytes auto 7.1 % Not Available [address], [address], 12/19/2024 13:55:20 12/20/19 25 12/19/2024 COMPL ETE BLOOD COUNT W/ DIFF %eosinophils auto 7.1 % Not Available [address], [address], 12/19/2024 13:55:20 12/20/19 25 12/19/2024 COMPL ETE BLOOD COUNT W/ DIFF %basophils auto 0.9 % Not Available [address], [address], 12/19/2024 13:55:20 12/20/19 25 12/19/2024 COMPL ETE BLOOD COUNT W/ DIFF %immature granulocytes auto 0.5 % Not Available [address], [address], 12/19/2024 13:55:20 12/20/19 25 12/19/2024 COMPL ETE BLOOD COUNT W/ DIFF #neutrophils auto 4.82 K/uL 1.50-7 .50 normal Not Available [address], [address], 12/19/2024 13:55:20 12/20/19 25 12/19/2024 COMPL ETE BLOOD COUNT W/ DIFF #lymphocytes auto 1.83 K/uL 1.00-4 .50 normal Not Available [address], [address], 12/19/2024 13:55:20 12/20/19 25 12/19/2024 COMPL ETE BLOOD COUNT W/ DIFF #monocytes auto 0.56 K/uL 0.00-0 .80 normal Not Available [address], [address], 12/19/2024 13:55:20 12/20/19 25 12/19/2024 COMPL ETE BLOOD COUNT W/ DIFF #eosinophils auto 0.56 K/uL 0.00-0 .40 high Not Available [address], [address], 12/19/2024 13:55:20 12/20/19 25 12/19/2024 COMPL ETE BLOOD COUNT W/ DIFF #basophils auto 0.07 K/uL 0.00-0 .20 normal Not Available [address], [address], 12/19/2024 13:55:20 12/20/19 25 12/19/2024 COMPL ETE BLOOD COUNT W/ DIFF #immature granulocytes auto 0.04 K/uL 0.00-0 .10 normal Not Available [address], [address], 12/19/2024 13:55:20 12/20/19 25 12/19/2024 COMPR EHENS KISHAN METAB OLIC PANEL sodium 142 mEq/L 133-14 5 normal Not Available [address], [address], 12/19/2024 14:28:04 12/20/19 25 12/19/2024 COMPR EHENS KISHAN METAB OLIC PANEL potassium 4.5 mEq/L 3.5-5. 1 normal Not Available [address], [address], 12/19/2024 14:28:04 12/20/19 25 12/19/2024 COMPR EHENS KISHAN METAB OLIC PANEL chloride 109 mEq/L 98-112 normal Not Available [address], [address], 12/19/2024 14:28:04 12/20/19 25 12/19/2024 COMPR EHENS KISHAN METAB OLIC PANEL carbon dioxide 26 mEq/L 22-31 normal Not Available [address], [address], 12/19/2024 14:28:04 12/20/19 25 12/19/2024 COMPR EHENS KISHAN METAB OLIC PANEL anion gap 7 mEq/L 5-15 normal Not Available [address], [address], 12/19/2024 14:28:04 12/20/19 25 12/19/2024 COMPR EHENS KISHAN METAB OLIC PANEL blood urea nitrogen (BUN) 21 mg/dL 8-26 normal Not Available [address], [address], 12/19/2024 14:28:04 12/20/19 25 12/19/2024 COMPR EHENS KISHAN METAB OLIC PANEL creatinine 1.63 mg/dL 0.70-1 .18 high Not Available [address], [address], 12/19/2024 14:28:04 12/20/19 25 12/19/2024 COMPR EHENS [...] GFR categ ories shoul d be assig dvaid as: eGFR 45-59 = G3a (mild ly to moder ately decre ased) , eGFR 30-44 = G3b (mode ratel y to sever ivy decre ased) , eGFR 15-29 G4 (leonard rely decre ased) , eGFR< 15 G5 (kidn ey failu re). Not Available [address], [address], 12/19/2024 14:28:04 12/20/19 25 12/19/2024 COMPR EHENS KISHAN METAB OLIC PANEL glucose 189 mg/dL 70-100 high Fasti ng Refer ence Inter vera: 70-10 0mg/d L Non-f astin g Refer ence Inter vera: 70-14 0mg/d L Not Available [address], [address], 12/19/2024 14:28:04 12/20/19 25 12/19/2024 COMPR EHENS KISHAN METAB OLIC PANEL calcium 9.5 mg/dL 8.4-10 .4 normal Not Available [address], [address], 12/19/2024 14:28:04 12/20/19 25 12/19/2024 COMPR EHENS KISHAN METAB OLIC PANEL bilirubin total 0.4 mg/dL 0.3-1. 2 normal Not Available [address], [address], 12/19/2024 14:28:04 12/20/19 25 12/19/2024 COMPR EHENS KISHAN METAB OLIC PANEL aspartate amino transferase 26 IU/L 11-34 normal Not Available [address], [address], 12/19/2024 14:28:04 12/20/19 25 12/19/2024 COMPR EHENS KISHAN METAB OLIC PANEL alanine aminotransfe rase 28 IU/L <45 Not Available [address], [address], 12/19/2024 14:28:04 12/20/19 25 12/19/2024 COMPR EHENS KISHAN METAB OLIC PANEL total protein 6.6 g/dL 5.8-8. 1 normal Not Available [address], [address], 12/19/2024 14:28:04 12/20/19 25 12/19/2024 COMPR EHENS KISHAN METAB OLIC PANEL albumin 4.0 g/dL 2.5-5. 0 normal Not Available [address], [address], 12/19/2024 14:28:04 12/20/19 25 12/19/2024 COMPR EHENS KISHAN METAB OLIC PANEL alkaline phosphatase 81 IU/L 40-150 normal Not Available [address], [address], 12/19/2024 14:28:04 12/20/19 25 12/19/2024 PHOSP HORUS phosphorus 2.8 mg/dL 2.5-4. 5 normal Not Available [facility] [address] [place], [address], 12/19/2024 14:28:05 07/11/20 24 07/11/2024 MRI, thora cic spine , w/wo contr ast No observ ation record ed. JALEESA Not Available 2023 12:43:12 08/09/20 24 07/12/2024 MRI, shoul lorri, w/ contr ast No observ ation record ed. jgittzus Bridgette/[facility]ivis[facility] [address], [place], [address], 09/06/2024 10:53:25 01/17/20 25 01/13/2025 US, renal No observ ation record ed. [facility] [address], [place], [address], 01/16/2025 12:01:46 02/10/20 25 02/09/2025 MRI, thora cic spine , w/wo contr ast No observ ation record ed. JALEESA Not Available 2024 11:01:38 Result Notes None recorded. Problems Name Problem SNOMED Code Status Onset Date Resolution Date Notes Provider Name and Address Organization Details Recorded Time Epididyma l swelling 509217922 Active 2022 Murray Reyna MD [address] [facility], [address], [place], [address], [place] - PMA/WIP 3 14:12:53 Gout 68493941 Active 2023 Murray Reyna MD [address] [facility], [address], [place], [address], [place] P[place]/WIP 4 08:31:40 Uncontrol led type 2 diabetes mellitus 087597380 Active 2018 Murray Reyna MD [address] [place] [address], [address], [place], [address], [place] PMA/WIP 9 15:37:28 Steatohep atitis 697735148 Active 2018 Murray Reyna MD [address] [place] [address], [address], [place], [address], [place] PMA/WIP 9 15:37:40 Right cervical root neuropath y 818568618383 65984 Active 2018 improved Murray Reyna MD [address] [place] [address], [address], [place], [address], [place] PMA/WIP 9 15:38:08 Mixed hyperlipi demia 061864894 Active 2018 Murray Reyna MD [address] [place] [address], [place] [address], [place], [address], [place] PMA/WIP 9 15:38:19 Gastroeso phageal reflux disease without esophagit is 676339253 Active 2018 Murray Reyna MD [address] [place] [address], [address], [place], [address], [place] PMA/WIP 9 15:38:29 Polyp of colon 07236536 Active 2018 scope 2010 repeat 2019 repeat 12/25 due 12/28 Murray Reyna MD [address] [place] [address], [place] [address], [place], [address], [place] PMA/WIP 3 11:20:51 Kidney stone 31488327 Active 2018 last 20 years ago Murray Reyna MD [address] [place] [address], [facility] [address], [place], [address], [place] PMA/WIP 1 14:33:13 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 Procedures Surgical History Date Name Laterality Status Provider Name and Address Organization Details Recorded Time procedure on shoulder completed Murray Reyna MD [address] [place] [address], [address], [place], [address], [place] - PMA/WIP 05/16/2019 15:41:00 Cervical laminoplsty 2/> seg completed Murray Reyna MD [address] [place] [address], Suite [facility], [place], [address], [place] - PMA/WIP 05/16/2019 15:41:13 Vasectomy completed Murray Reyna MD [address] [place] [address], [address], [place], [address], [place] - PMA/WIP 05/16/2019 15:41:32 Imaging Results None recorded. Procedure Notes None recorded. Medical Equipment None Reported. Allergies No known drug allergies Medications Name Sig Start Date Stop Date Status Note LastModified by Organization Details LastModified Time freestyle luzmaria 14 day/senso r/flash monitorin g system [facility] completed Not Available Not Available Not Available doxycycli ne hyclate 100 mg tabs 09/13 completed Not Available Not Available Not Available glimepiri de 4 mg tabs 11/11 completed Not Available Not Available Not Available simvastat in 10 mg tabs 10/25 completed Not Available Not Available Not Available sure comfort insulin syringe/u -100/0.5m l/31g x 16 31g x /16 0.5 ml misc 11/11 completed Not Available [...] TAKE ONE TABLET BY MOUTH EVERY DAY active Not Available Not Available No t Available Lantus U-100 Insulin 100 unit/mL subcutane ous solution INJECT 45 UNITS DAILY Or DIRECTED 2024 active Not Available Not Available Not Avai lable torsemide 10 mg tablet active Not Available [...] Available Not Available Not Available Dexcom G7 Senior Test Analyst active Not Available Not Available Not Available Vitals Date Recorded Body height Body mass index (BMI) Body weight Oxygen saturation Oxygen saturation in Arterial blood by Pulse oximetry Heart rate Systolic blood pressure Diastolic blood pressure Provider Name and Address Organization Details Last Updated DateTime 5 175.26 cm 31.8 kg/m2 48135.5 1 g 97 % 97 % 73 /min 130 mm[Hg] 79 mm[Hg] Amanda Baker [facility] - PMA/WIP 5 12:42:51 Date Recorded Body height Body mass index (BMI) Body weight Oxygen saturation Oxygen saturation in Arterial blood by Pulse oximetry Heart rate Systolic blood pressure Diastolic blood pressure Provider Name and Address Organization Details Last Updated DateTime 4 175.26 cm 29.7 kg/m2 43728.0 7 g 98 % 98 % 60 /min 138 mm[Hg] 60 mm[Hg] Amanda Baker [facility] [place] - PMA/WIP 4 09:26:35 Date Recorded Body height Body mass index (BMI) Body weight Oxygen saturation Oxygen saturation in Arterial blood by Pulse oximetry Heart rate Systolic blood pressure Diastolic blood pressure Provider Name and Address Organization Details Last Updated DateTime 4 175.26 cm 30.3 kg/m2 84223.4 4 g 98 % 98 % 72 /min 138 mm[Hg] 88 mm[Hg] Amanda kofi Monteirodionicio solares [place] - PMA/WIP 4 10:48:31 Date Recorded Body height Provider Name an d Address Organization Details Last Updated DateTime 09/13/2024 175.26 cm Murray Reyna MD [address] [facility], [address], [place], [address], [place] - PMA/WIP 09/13/2024 08:28:24 Social History None [...] virus, quadrivalent, preservative 9 completed Not Available [facility] 09/21/2023 13:42:58 Pneumococcal conjugate PCV 13 9 completed Not Available [facility] 09/21/2023 13:42:58 Influenza, split virus, quadrivalent, PF 8 completed Not Available [facility] 09/21/2023 13:42:58 COVID-19, mRNA, LNP-S, PF, 100 mcg/0.5mL dose or 50 mcg/0.25mL dose 1 completed Not Available [facility] 09/21/2023 13:42:58 COVID-19, mRNA, LNP-S, PF, 100 mcg/0.5mL dose or 50 mcg/0.25mL dose 1 completed Not Available [facility] 09/21/2023 13:42:58 Influenza, split virus, quadrivalent, PF 0 completed Not Available [facility] 09/21/2023 13:42:58 zoster recombinant 0 completed Not Available [facility] 09/21/2023 13:42:58 Influenza, split virus, quadrivalent, PF 1 completed Not Available [facility] 09/21/2023 13:42:58 COVID-19, mRNA, LNP-S, PF, 100 mcg/0.5mL dose or 50 mcg/0.25mL dose 1 completed Not Available [facility] 09/21/2023 13:42:58 COVID-19, mRNA, LNP-S, PF, 100 mcg/0.5mL dose or 50 mcg/0.25mL dose 2 completed Not Available [facility] 09/21/2023 13:42:58 Pneumococcal conjugate PCV20, polysaccharide [id number] conjugate, adjuvant, PF 2 completed Not Available [facility] 09/21/2023 13:42:58 COVID-19, mRNA, LNP-S, bivalent, PF, 50 mcg/0.5 mL or 25mcg/0.25 mL dose 2 completed Not Available [facility] 09/21/2023 13:42:58 Influenza, split virus, quadrivalent, PF 2 completed Not Available [facility] 09/21/2023 13:42:58 Past Encounters Encounter ID Performer Location Encounter Start Date Encounter Closed Date Diagnosis/Indication Diagnosis SNOMED-CT Code Diagnosis ICD10 Code Diagnosis Note [id number] Murray Reyna MD [address] [place] [address] 05/16/2019 14:40:02 05/17/2019 07:54:59 Essential hypertension 20231973 I10 bp checks, call with results; may need increase of lisinopril Anaplasmosis 20247532 A7 7.49 with vague viral symptoms will recheck tick borne panel Mixed hyperlipidemia 267 218148 E78.2 at goal ; cont simvastati n Uncontroll ed type 2 diabetes mellitus 320345054 E11.65 lantus mecca f/u endocrine [id number] Murray Reyna MD [address] [place] [address] 09/13/2019 09:02:23 09/14/2019 07:30:51 Essential hypertension 73802043 I10 bp checks, call with results; may need increase of lisinopril Gastroesop hageal reflux disease without esophagitis 752532422 K21.9 omeprazole Mixed hyperlipidemia 267 369085 E78.2 at goal ; cont simvastati n Uncontroll ed type 2 diabetes mellitus 473003641 E11.65 lantus trulicity f/u endocrine Loss of se nse of smell 51982860 R43.0 ENT eval [id number] Murray Reyan MD [address] [place] [address] 02/21/2020 08:42:01 02/21/2020 14:42:12 Essential hypertension 66727014 I10 bp checks, call with results; increase of lisinopril ; Gastroesop hageal reflux disease without esophagitis 112131966 K21.9 omeprazole Mixed hyperlipidemia 267 194225 E78.2 at goal ; cont simvastati n Uncontroll ed type 2 diabetes mellitus 080337843 E11.65 lantus trulicity f/u endocrine; discussed diet / exercise relationsh ip Anaplasmosis 05201019 A7 7.49 no symptoms [id number] Murray Reyna MD [facility] [place] [address] [place] [address] 06/15/2020 08:18:25 06/15/2020 09:26:11 Essential hypertension 73523129 I10 bp checks, call with results; increase of lisinopril ; Gastroesop hageal reflux disease without esophagitis 288243939 K21.9 omeprazole Mixed hyperlipidemia 267 157573 E78.2 at goal ; cont simvastati n Uncontroll ed type 2 diabetes mellitus 515164881 E11.65 lantus increased to 45; trulicity f/u endocrine; discussed diet / [place] [id number] [facility] [address] [place] [address] 10/25/2020 08:04:00 10/25/2020 14:41:29 Essential hypertension 31982113 I10 bp checks, call with results; increase of lisinopril ; Kidney stone 19539414 N2 0.0 none later Polyp of colon 98020897 K63.5 due 2024 Gastroesop hageal reflux disease without esophagitis 915652955 K21.9 omeprazole Mixed hyperlipidemia 267 638069 E78.2 at goal ; cont simvastati n Steatohepatitis 12931450 2 K75.81 lft's nl Uncontroll ed type 2 diabetes mellitus 675266520 E11.65 lantus increased to 45; trulicity f/u endocrine; discussed diet / [place] [id number] Murray Reyna MD [address] [address] 02/08/2021 08:07:35 02/08/2021 10:45:34 Essential hypertension 42647326 I10 bp checks, call with results; increase of lisinopril ; Polyp of colon 65484960 K63.5 due 2024 Gastroesop hageal reflux disease without esophagitis 221593132 K21.9 omeprazole Mixed hyperlipidemia 267 443789 E78.2 at goal ; cont simvastati n Uncontroll ed type 2 diabetes mellitus 061721652 E11.65 lantus increased to 45; trulicity f/u endocrine; discussed diet / [place] [id number] Murray Reyna MD [address] [address] 06/14/2021 08:02:35 06/14/2021 08:55:15 Essential hypertension 66960929 I10 bp checks, call with results; increase of lisinopril ; Kidney stone 59935177 N2 0.0 none later Gastroesop hageal reflux disease without esophagitis 977236585 K21.9 omeprazole Mixed hyperlipidemia 267 713326 E78.2 at goal ; cont simvastati n Uncontroll ed type 2 diabetes mellitus 363588501 E11.65 lantus increased to 45; trulicity f/u endocrine; discussed diet / exercise relations ip Steatohepatitis 69752241 2 K75.81 [place] [id number] Murray Reyna MD [address] [address] 11/12/2021 08:04:27 11/12/2021 12:00:59 Kidney stone 62649311 N20.0 none later Polyp of colon 10392557 K63.5 due 2024 Gastroesop hageal reflux disease without esophagitis 329209504 K21.9 omeprazole Mixed hyperlipidemia 267 719247 E78.2 at goal ; cont simvastati n Uncontroll ed type 2 diabetes mellitus 275075365 E11.65 lantus increased to 45; trulicity f/u endocrine; discussed diet / exercise relationsh ipconsider increase in trulicity; patient lives in [place] would like referral to new endocrine [id number] Murray Reyna MD [address] [address] 03/04/2022 08:08:46 03/04/2022 12:05:40 Essential hypertension 68414658 I10 bp checks, call with results; increase of lisinopril ; Kidney stone 95598130 N2 0.0 none later Gastroesop hageal reflux disease without esophagitis 909870495 K21.9 omeprazole Mixed hyperlipidemia 267 045074 E78.2 at goal ; cont simvastati n Uncontroll ed type 2 diabetes mellitus 555967664 E11.65 lantus increased to 45; trulicity f/u endocrine; discussed diet / exercise relationsh ipconsider increase in trulicity; patient lives in [place] would like data sent to new endocrine [id number] Murray Reyna MD [address] [address] 03/13/2022 12:55:43 03/13/2022 14:02:18 [id number] Murray Reyna MD [address] [address] 04/03/2022 11:23:35 04/04/2022 08:51:01 Essential hypertension 62451237 I10 bp checks, call with results; increase of lisinopril ; Mixed hyperlipidemia 267 820702 E78.2 at goal ; cont simvastati n Uncontroll ed type 2 diabetes mellitus 937822154 E11.65 increase trulicitym ay need to reduce glimepirid e if hypoglycem ia prior: lantus increased to 45; trulicity f/u endocrine; discussed diet / exercise relationsh ipconsider increase in trulicity; patient lives in [place] would like data sent to new endocrine Erectile dysfunction 860 696747 F52.21 [id number] Murray Reyna MD [address] [address] 09/30/2022 10:55:09 09/30/2022 12:08:40 Essential hypertension 67282424 I10 bp checks, call with results; increase of lisinopril ; Kidney stone 27959999 N2 0.0 none later Polyp of colon 63294680 K63.5 due 2024 Gastroesop hageal reflux disease without esophagitis 144917641 K21.9 omeprazole Mixed hyperlipidemia 267 615750 E78.2 at goal ; cont simvastati n Right cerv ical root neuropathy 6623003304 1763898 G54.2 Uncontroll ed type 2 diabetes mellitus 030172069 E11.65 increase trulicitym ay need to reduce glimepirid e if hypoglycem ia prior: lantus increased to 45; trulicity f/u endocrine; discussed diet / exercise relationsh ipconsider increase in trulicity; patient lives in [place] would like data sent to new endocrine Steatohepatitis 72748254 2 K75.81 [place] [id number] Murray Reyna MD [address] [address] 01/12/2023 10:45:43 01/12/2023 11:27:04 Essential hypertension 18580092 I10 bp checks, call with results; increase of lisinopril ; Kidney stone 33498561 N2 0.0 none later Gastroesop hageal reflux disease without esophagitis 488575730 K21.9 omeprazole Mixed hyperlipidemia 267 427446 E78.2 at goal ; cont simvastati n Right cerv ical root neuropathy 6950495621 5432274 G54.2 Steatohepatitis 41896056 2 K75.81 lft's nl Uncontroll ed type 2 diabetes mellitus 174842634 E11.65 increase trulicitym ay need to reduce glimepirid e if hypoglycem ia prior: lantus increased to 45; trulicity f/u endocrine; discussed diet / exercise relationsh ipconsider increase in trulicity; patient lives in [place] would like data sent to new endocrine Spasm of back muscles 20 4471625 M62.830 discussed treatment declines pt at present [id number] Murray Reyna MD [address] [address] 03/26/2023 13:12:11 03/26/2023 14:48:09 Essential hypertension 99287228 I10 bp checks, call with results; increase of lisinopril ; Kidney stone 11051024 N2 0.0 none later Gastroesop hageal reflux disease without esophagitis 018260059 K21.9 omeprazole Mixed hyperlipidemia 267 393264 E78.2 at goal ; cont simvastati n Uncontroll ed type 2 diabetes mellitus 577617828 E11.65 increase trulicitym ay need to reduce glimepirid e if hypoglycem ia prior: lantus increased to 45; trulicity f/u endocrine; discussed diet / exercise relationsh ipconsider increase in trulicity; patient lives in [place] would like data sent to new endocrine Epididymal swelling 3008 89862 N50.89 prob cystcheck urine c & s [id number] Murray Reyna MD [address] [address] 11/11/2023 13:43:31 11/12/2023 09:36:34 Essential hypertension 69160890 I10 Medication s: lisinopril 10mg and HCTZ 12.5mg Gastroesop hageal reflux disease without esophagitis 900709212 K21.9 Stable on omeprazole Mixed hyperlipidemia 267 120622 E78.2 at goal ; cont simvastati n Uncontroll ed type 2 diabetes mellitus 407606702 E11.65 Medication s: glimepirid e 4mg bid, lantus 45 units in the night, metformin 1000mg and ozempic 2mg Gout 20030575 M10.9 67-year-ol d male presenting with severe [...] uric acid levels Benign ess ential hypertension 2276460 I10 Medication : lisinopril 10mg [id number] MD Francisco Zepeda [place] [address] [place] [address] 11/19/2023 08:03:33 11/20/2023 08:07:10 Hyperkalemia 68493803 E87.5 elevated potasiumta maria teresa HcTZ 12.5mg Chronic ki dney disease stage 3B 767943255 N18.32 elevated creatinine levelalso uric acid and potasiumGF R 40not on any nephrotoxi c medication sPMHx remarkable for HTN (lisinopri l, HCTZ), T2 DM, HLDpending labs on PTH, vitamin D, phosphorus , microalbum in and repeat CMP, uric acid Essential hypertension 58257056 I10 Medication s: lisinopril 10mg and HCTZ 12.5mg Gastroesop hageal reflux disease without esophagitis 972741584 K21.9 Stable on omeprazole Mixed hyperlipidemia 267 550640 E78.2 at goal ; cont simvastati n Uncontroll ed type 2 diabetes mellitus 407766698 E11.65 Medication s: glimepirid e 4mg bid, lantus 45 units in the night, metformin 1000mg and ozempic 2mg Gout 68212686 M10.9 67-year-ol d male presenting with severe [...] acid levels elevated Benign ess ential hypertension 9141212 I10 Medication : lisinopril 10mg and HctZ 12.5mg 33335 Murray Reyna MD [address] [place] [address] 02/08/2024 12:53:23 02/08/2024 13:49:28 Essential hypertension 28282249 I10 bp checks, call with results; increase of lisinopril ; Kidney stone 99909147 N2 0.0 none later Polyp of colon 26974579 K63.5 due 2025 Gastroesop hageal reflux disease without esophagitis 442120800 K21.9 omeprazole Mixed hyperlipidemia 267 274461 E78.2 at goal ; cont simvastati n Steatohepatitis 75792886 2 K75.81 lft's nl Uncontroll ed type 2 diabetes mellitus 010548700 E11.65 ozempicmay need to reduce glimepirid e if hypoglycem ia prior: lantus increased to 45; trulicity f/u endocrine; discussed diet / exercise relationsh ipconsider increase in trulicity; patient lives in [place] would like data sent to [facility] [address] Tavia Church NP [address] [place] [address] 04/19/2024 09:52:13 04/20/2024 10:27:56 Pain of right shoulder joint 9189879805 3031095 M25.511 Hx of right shoulder pain with repair a referral to ortho will be made Cervical radiculopathy 81359976 M54.12 Hx of cervical discectomy in the past increased pain in neck with past few weeks with radicuopat hy down right arm to middle of bicept 07435 Tavia Church NP [address] [place] [address] 05/03/2024 09:11:44 05/03/2024 10:40:57 Pain of right shoulder joint 4153991591 4100361 M25.511 Hx of right shoulder pain with repair a referral to ortho will be made Cervical radiculopathy 98989403 M54.12 Hx of cervical discectomy in the past increased pain in neck with past few weeks with radiculopa thy down right arm to middle of bicep He states he did find another place in [facility] that has a open MRI. He states that the [facility] [phone]. 17950 Tavia Church NP [address] [place] [address] 05/17/2024 07:50:00 05/17/2024 15:02:46 Pain of right shoulder joint 3169217306 7937563 M25.511 Hx of right shoulder pain with repair a referral to ortho will be made Cervical radiculopathy 44417978 M54.12 C5-6 degenerati ve disc disease with [...] states he did find another place in [facility] that has a open MRI. He states that the [facility] [phone]. 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 C6-7 degenerati ve disc disease with mild central canal stenosis. Enlarged hetergenso u thyroid gland containing multiple nodules. 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 88477 Murray Reyna MD [address] [address] 05/20/2024 08:09:14 05/20/2024 13:51:50 Essential hypertension 21970446 I10 bp checks, call with results; increase of lisinopril ; Kidney stone 45070231 N2 0.0 none later Polyp of colon 79596338 K63.5 due 2025 Gastroesop hageal reflux disease without esophagitis 024556189 K21.9 omeprazole Mixed hyperlipidemia 267 279639 E78.2 at goal ; cont simvastati n Right cerv ical root neuropathy 7239482742 5441927 G54.2 Uncontroll ed type 2 diabetes mellitus 120971806 E11.65 ozempicmay need to reduce glimepirid e if hypoglycem ia prior: lantus increased to 45; trulicity f/u endocrine; discussed diet / exercise relationsh ipconsider increase in trulicity; patient lives in [place] would like data sent to new endocrine Steatohepatitis 01839819 2 K75.81 lft's nl Anxiety 30170547 F41.9 65513 Tavia Church NP [address] [address] 06/07/2024 08:27:55 06/07/2024 15:11:40 Pain of right shoulder joint 5986180044 9407438 M25.511 Hx of right shoulder pain he was seen by ortho He is pending a MRI Cervical radiculopathy 87478470 M54.12 C5-6 degenerati ve disc disease with [...] states he did find another place in [facility] that has a open MRI. He states that the [facility] . He will be going to [facility] for his repeat MRI on Jul Thyroid nodule 840021186 E04.1 Enlarged thryoid with multiple nodules was [...] document stability recommende d. 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 C6-7 degenerati ve disc disease with mild central canal stenosis. Enlarged hetergenso u thyroid gland containing multiple nodules. 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 15555 Tavia Church NP [address] [place] [address] 07/12/2024 08:10:23 07/12/2024 14:43:19 Pain of right shoulder joint 9662068928 8458784 M25.511 Hx of right shoulder pain he was seen by ortho He is pending a MRI Cervical radiculopathy 82478877 M54.12 C5-6 degenerati ve disc disease with [...] states he did find another place in [facility] that has a open MRI. He states that the [facility] . He will be going to [facility] for his repeat MRI on Jul Thyroid nodule 147228490 E04.1 Enlarged thryoid with multiple nodules was [...] document stability recommende d. Thoracic back pain 85807 8004 M54.6 C5-6 degenerati ve disc disease [...] recommence d which was done withtout contrast 54880 Murray Reyna MD [address] [address] 08/09/2024 09:23:23 08/09/2024 10:01:44 Essential hypertension 30655617 I10 bp checks, call with results; increase of lisinopril ; Gastroesop hageal reflux disease without esophagitis 329445228 K21.9 omeprazole Kidney stone 93854405 N2 0.0 none later Mixed hyperlipidemia 267 150426 E78.2 at goal ; cont simvastati n Uncontroll ed type 2 diabetes mellitus 749437855 E11.65 ozempicmay need to reduce glimepirid e if hypoglycem ia prior: lantus increased to 45; trulicity f/u endocrine; discussed diet / exercise relationsh ipconsider increase in trulicity; patient lives in [place] would like data sent to [facility] [address] Murray Reyna MD [facility] [place] [address] [place] [address] 09/06/2024 10:46:31 09/07/2024 10:44:29 Essential hypertension 98846074 I10 bp checks, call with results; increase of lisinopril ; Kidney stone 73687290 N2 0.0 none later Gastroesop hageal reflux disease without esophagitis 339253350 K21.9 omeprazole Mixed hyperlipidemia 267 932334 E78.2 at goal ; cont simvastati n Right cerv ical root neuropathy 4077658613 4249928 G54.2 Steatohepatitis 66767963 2 K75.81 lft's nl Uncontroll ed type 2 diabetes mellitus 388699608 E11.65 discussed treatment of increased bs with prednisone ozempicmay need to reduce glimepirid e if hypoglycem ia prior: lantus increased to 45; trulicity f/u endocrine; discussed diet / exercise relationsh ipconsider increase in trulicity; patient lives in [place] would like data sent to new endocrine Acute gout 723869334 M10 .9 98479 Murray Reyna MD [address] [place] [address] 09/13/2024 08:02:48 09/13/2024 08:44:44 Essential hypertension 32265999 I10 bp checks, call with results; increase of lisinopril ; Gastroesop hageal reflux disease without esophagitis 515737604 K21.9 omeprazole Mixed hyperlipidemia 267 001069 E78.2 at goal ; cont simvastati n Steatohepatitis 93723647 2 K75.81 lft's nl Uncontroll ed type 2 diabetes mellitus 307852000 E11.65 discussed treatment of increased bs with prednisone ozempicmay need to reduce glimepirid e if hypoglycem ia prior: lantus increased to 45; trulicity f/u endocrine; discussed diet / exercise relationsh ipconsider increase in trulicity; patient lives in [place] would like data sent to new endocrine Gout 47598481 M10.9 with prednisone 20 mg qd gout 75% better but blood sugar difficult to controlwil l try bid colchicine 43562 MD Francisco Zepeda [address] [place] [address] 12/27/2024 12:38:02 12/27/2024 13:45:45 Essential hypertension 59352313 I10 bp checks, call with results; increase of lisinopril ; Mixed hyperlipidemia 267 807101 E78.2 at goal ; cont simvastati n Gastroesop hageal reflux disease without esophagitis 575845632 K21.9 omeprazole Uncontroll ed type 2 diabetes mellitus 792677404 E11.65 discussed treatment of increased bs with prednisone ozempicmay need to reduce glimepirid e if hypoglycem ia prior: lantus increased to 45; trulicity f/u endocrine; discussed diet / exercise relationsh ipconsider increase in trulicity; patient lives in [place] would like data sent to new endocrine Steatohepatitis 27330461 2 K75.81 lft's nl Kidney stone 85994095 N2 0.0 none later Gout 78380496 M10.9 with prednisone 20 mg qd gout 75% better but blood sugar difficult to controlwil l try bid colchicine Right cerv ical root neuropathy 2359612344 9120172 G54.2 surgery scheduled Health Concerns Section Related Observation LastModified by Organization Detai ls LastModified Time None Recorded Concern Status LastModified by Organization Details LastModified Time None Recorded Advance Directives Directive None Recorded Payers Encounter Date Sequence Insurance Name Policy Number Policy Valladares Covered Member ID Valladares Member ID Guarantor Name 07/12/2024 2 [employer] (MEDICARE SUPPLEMENT) Lonny Vallejo [id number] Lonny Vallejo 07/12/2024 1 [place] [employer] Lonny Vallejo [id number] Lonny Vallejo 08/09/2024 2 [employer] (MEDICARE SUPPLEMENT) Lonny Vallejo [id number] Lonny Vallejo 08/09/2024 1 [place] [employer] Lonny Vallejo [id number] Lonny Vallejo 09/06/2024 2 [employer] (MEDICARE SUPPLEMENT) Lonny Vallejo [id number] Lonny Vallejo 09/06/2024 1 [place] [employer] Lonny Vallejo [id number] Lonny Vallejo 09/13/2024 2 [employer] (MEDICARE SUPPLEMENT) Lonny Vallejo [id number] Lonny Vallejo 09/13/2024 1 [place] [facility] Lonny Vallejo [id number] Lonny Vallejo 12/27/2024 2 [employer] (MEDICARE SUPPLEMENT) Lonny Vallejo [id number] Lonny Vallejo 12/27/2024 1 [place] [facility] Lonny Vallejo [id number] Lonny Vallejo Notes Date Note Type Note [...] even with the pain. Tavia Church NP [address] [place] [address], [place], [address], [facility] - PMA/WIP 07/12/2024 13:49:18 08/09/2024 text/html doing well;still waiting for shoulder MRI results;now on low K+ dietbp goodhad shoulder MRI in [place] no results yet;having PT for shoulderHCTZ stoppedthyroid has multiple nodules Murray Reyna MD [address] [place] [address], [place], [address], [place] - PMA/WIP 08/09/2024 09:59:18 09/06/2024 text/html doing well excep t right leg swelling and pain for one month;no fever;worse in the past 2-3 days; Murray Reyna MD [address] [place] [address], [place], [address], [place] - PMA/WIP 09/06/2024 11:12:43 09/13/2024 text/html 75% better with prednisone but blood sugars up and down prior:doing well except right leg swelling and pain for one month;no fever;worse in the past 2-3 days; Murray Reyna MD [address] [place] [address], [place], [address], [place] - PMA/WIP 09/13/2024 08:39:42 12/27/2024 text/html preop for right cervical surgery at [facility] Dr [facility];pain right upper arm and neckno numbnesshad prior surgery on the same shoulder/neckdoing well except for shoulder pain;saw renal recently for pre-opbs review average Murray Reyna MD [address] [place] [address], [place] [address], [place], [address], [place] - PMA/WIP 12/27/2024 13:31:56
== END 2025-03-02 11:24 | disposition home or self-care (01) ==
LOC: HO.HNS 10:48
PROVIDERS: PCP Internal Medicine; Visit Provider Physician Assistant
DX: M54.12 Radiculopathy, cervical region (principal)
CPT/HCPCS: 99024

== ENCOUNTER → 2025-03-02 10:48 | Outpatient (BNVA) | payer MEDICARE, SELFPAY | PROVIDERS: PCP Internal Medicine; Visit Provider Physician Assistant | DX: Z48.89 Encounter for other specified surgical aftercare (principal); M54.12 Radiculopathy, cervical region; Z98.890 Other specified postprocedural states | CPT/HCPCS: 99212 ==

== ENCOUNTER 2025-04-13 08:00 | Outpatient (REF) | payer MEDICARE, SELFPAY ==
--- NOTE | ~2025-04-13 | XR_ITS ---
EXAMINATION: XR CERVICAL SPINE CLINICAL INFORMATION: M54.12 - Radiculopathy, cervical region COMPARISON: None available. TECHNIQUE: AP and lateral views. Lateral views during flexion and extension position. FINDINGS: Craniocervical junction is intact with normal alignment. Intervertebral disc spacer at C5-6. Anterior marginal osteophyte formation and endplate sclerosis decreased intervertebral disc height C6-7. No acute cortical disruption or gross malalignment. No malalignment during flexion and or extension position. No lytic or blastic lesions. Upper airways patent. 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 Status post intervertebral disc spacer placement/arthrodesis C5-6. No acute fracture or instability. Electronically signed by: Yuri Wilkes MD 04/13/2025 11:09 AM EDT
== END 2025-04-13 08:01 | disposition home or self-care (01) ==
LOC: HO.HOSX 08:00
PROVIDERS: Visit Provider Physician Assistant
DX: M47.22 Other spondylosis with radiculopathy, cervical region (principal); M43.22 Fusion of spine, cervical region
CPT/HCPCS: 72050

== ENCOUNTER 2025-04-13 10:44 | Outpatient (AMB) | payer MEDICARE, SELFPAY ==
--- NOTE | 2025-04-13 10:58 | A.SPINEOV_ITS ---
Intake Visit Reasons: 2nd post op with xrays Intake Note: Mr. Vallejo is here for his 2nd post op with xrays. Information Systems Director Required: No Allergies No Known Allergies Allergy (Verified 04/13/25 10:58) Assessment & Plan Assessment & Plan (1) Cervical radiculopathy: Code(s): M54.12 - Radiculopathy, cervical region Category: Medical Plan Procedure: C5-6 ACDF Lonny is a pleasant 69 year old male who underwent C5-6 ACDF on 02/09/[address] Medeiros. To recap he was initially evaluated in clinic for shooting pains down his right upper extremity. He continued to report some right sided arm pain after surgery, which has improved quite a bit since his last visit but has not as of yet completed resolved. He reports good overall functionality and is completing ADLs without much issue. No new neurological deficits. The patient ambulates well and rises from a seated position without difficulty. His anterior incision site is closed and well healed. I would like to send Lonny for a course of PT to hopefully work out some of the continued right arm pain he is experiencing. John Medeiros MD,PhD [facility] Orders: Orders PT Evaluation and Treatment 04/13/25 M54.2 - Cervicalgia XR cervical spine 4V 04/13/25 M54.12 - Radiculopathy, cervical region Coding Level of Care Code Global (85209) Diagnoses Cervical radiculopathy M54.12
--- OUTSIDE RECORDS SUMMARY | 2025-04-13 11:26 | XMS_ITS | Data Portability ---
Author Organization [employer], DOT Address [address] [place] [address] Assessment Encounter Date Assessment Date Assessment LastModified [...] Orders colchicin e 0.6 mg tablet 2023 024 [facility], [address] [place] [address], [address], 09/13/2024 08:35:48 prednison e 20 mg tablet 2023 024 [facility], [address] [place] [address], [address], 09/06/2024 11:12:50 Patient TargetsNo targets recorded. Patient InstructionsNo instructions recorded. Reason for Referral None Reported. Results Created Date Observation Date Name Description Value Unit Range Abnormal Flag Note LastModifiedBy Organization Detail LastModifiedTime 12/20/1912/19/2024 COMPL ETE BLOOD COUNT W/ DIFF white blood count 7.9 K/mm3 4.0-11 .0 normal Not Available [address], [address], 12/19/2024 13:55:20 12/20/19 25 12/19/2024 COMPL ETE BLOOD COUNT W/ DIFF red blood count 5.36 M/uL 4.20-5 .80 normal Not Available [address], [address], 12/19/2024 13:55:20 12/20/19 25 12/19/2024 COMPL ETE BLOOD COUNT W/ DIFF hemoglobin 14.9 gm/dL 12.5-1 7.0 normal Not Available [address], [address], 12/19/2024 13:55:20 12/20/19 25 12/19/2024 COMPL ETE BLOOD COUNT W/ DIFF hematocrit 44.7 % 37.0-5 0.0 normal Not Available [address], [address], 12/19/2024 13:55:20 12/20/19 25 12/19/2024 COMPL ETE BLOOD COUNT W/ DIFF mean corpuscular volume 83.4 fL 80.0-1 00.0 normal Not Available [address], [address], 12/19/2024 13:55:20 12/20/19 25 12/19/2024 COMPL ETE BLOOD COUNT W/ DIFF MCHC 33.3 % 32-37 normal Not Available [address], [address], 12/19/2024 13:55:20 12/20/19 25 12/19/2024 COMPL ETE BLOOD COUNT W/ DIFF red cell distribution width 14.2 % 11.5-1 6.0 normal Not Available [address], [address], 12/19/2024 13:55:20 12/20/19 25 12/19/2024 COMPL ETE BLOOD COUNT W/ DIFF platelet count 166 K/uL 140-40 0 normal Not Available [address], [address], 12/19/2024 13:55:20 12/20/19 25 12/19/2024 COMPL ETE BLOOD COUNT W/ DIFF mean platelet volume 11.4 fL 8.6-12 .5 normal Not Available [address], [address], 12/19/2024 13:55:20 12/20/19 25 12/19/2024 COMPL ETE BLOOD COUNT W/ DIFF %nucleated RBC auto 0.0 % 0.0-0. 7 normal Not Available [address], [address], 12/19/2024 13:55:20 12/20/19 25 12/19/2024 COMPL ETE BLOOD COUNT W/ DIFF %neutrophils auto 61.2 % Not Available [address], [address], 12/19/2024 13:55:20 12/20/19 25 12/19/2024 COMPL ETE BLOOD COUNT W/ DIFF %lymphocytes auto 23.2 % Not Available [address], [address], 12/19/2024 13:55:20 12/20/19 25 12/19/2024 COMPL ETE BLOOD COUNT W/ DIFF %monocytes auto 7.1 % Not Available [address], [address], 12/19/2024 13:55:20 12/20/19 25 12/19/2024 COMPL ETE BLOOD COUNT W/ DIFF %eosinophils auto 7.1 % Not Available [address], [address], 12/19/2024 13:55:20 12/20/19 25 12/19/2024 COMPL ETE BLOOD COUNT W/ DIFF %basophils auto 0.9 % Not Available [address], [address], 12/19/2024 13:55:20 12/20/19 25 12/19/2024 COMPL ETE BLOOD COUNT W/ DIFF %immature granulocytes auto 0.5 % Not Available [address], [address], 12/19/2024 13:55:20 12/20/19 25 12/19/2024 COMPL ETE BLOOD COUNT W/ DIFF #neutrophils auto 4.82 K/uL 1.50-7 .50 normal Not Available [address], [address], 12/19/2024 13:55:20 12/20/19 25 12/19/2024 COMPL ETE BLOOD COUNT W/ DIFF #lymphocytes auto 1.83 K/uL 1.00-4 .50 normal Not Available [address], [address], 12/19/2024 13:55:20 12/20/19 25 12/19/2024 COMPL ETE BLOOD COUNT W/ DIFF #monocytes auto 0.56 K/uL 0.00-0 .80 normal Not Available [address], [address], 12/19/2024 13:55:20 12/20/19 25 12/19/2024 COMPL ETE BLOOD COUNT W/ DIFF #eosinophils auto 0.56 K/uL 0.00-0 .40 high Not Available [address], [address], 12/19/2024 13:55:20 12/20/19 25 12/19/2024 COMPL ETE BLOOD COUNT W/ DIFF #basophils auto 0.07 K/uL 0.00-0 .20 normal Not Available [address], [address], 12/19/2024 13:55:20 12/20/19 25 12/19/2024 COMPL ETE BLOOD COUNT W/ DIFF #immature granulocytes auto 0.04 K/uL 0.00-0 .10 normal Not Available [address], [address], 12/19/2024 13:55:20 12/20/19 25 12/19/2024 COMPR EHENS KISHAN METAB OLIC PANEL sodium 142 mEq/L 133-14 5 normal Not Available [address], [address], 12/19/2024 14:28:04 12/20/19 25 12/19/2024 COMPR EHENS KISHAN METAB OLIC PANEL potassium 4.5 mEq/L 3.5-5. 1 normal Not Available [address], [address], 12/19/2024 14:28:04 12/20/19 25 12/19/2024 COMPR EHENS KISHAN METAB OLIC PANEL chloride 109 mEq/L 98-112 normal Not Available [address], [address], 12/19/2024 14:28:04 12/20/19 25 12/19/2024 COMPR EHENS KISHAN METAB OLIC PANEL carbon dioxide 26 mEq/L 22-31 normal Not Available [address], [address], 12/19/2024 14:28:04 12/20/19 25 12/19/2024 COMPR EHENS KISHAN METAB OLIC PANEL anion gap 7 mEq/L 5-15 normal Not Available [address], [address], 12/19/2024 14:28:04 12/20/19 25 12/19/2024 COMPR EHENS KISHAN METAB OLIC PANEL blood urea nitrogen (BUN) 21 mg/dL 8-26 normal Not Available [address], [address], 12/19/2024 14:28:04 12/20/19 25 12/19/2024 COMPR EHENS KISHAN METAB OLIC PANEL creatinine 1.63 mg/dL 0.70-1 .18 high Not Available [address], [address], 12/19/2024 14:28:04 12/20/19 25 12/19/2024 COMPR EHENS [...] G5 (kidn ey failu re). Not Available [address], [address], 12/19/2024 14:28:04 12/20/19 25 12/19/2024 COMPR EHENS KISHAN METAB OLIC PANEL glucose 189 mg/dL 70-100 high Fasti ng Refer ence Inter vera: 70-10 0mg/d L Non-f astin g Refer ence Inter vera: 70-14 0mg/d L Not Available [address], [address], 12/19/2024 14:28:04 12/20/19 25 12/19/2024 COMPR EHENS KISHAN METAB OLIC PANEL calcium 9.5 mg/dL 8.4-10 .4 normal Not Available [address], [address], 12/19/2024 14:28:04 12/20/19 25 12/19/2024 COMPR EHENS KISHAN METAB OLIC PANEL bilirubin total 0.4 mg/dL 0.3-1. 2 normal Not Available [address], [address], 12/19/2024 14:28:04 12/20/19 25 12/19/2024 COMPR EHENS KISHAN METAB OLIC PANEL aspartate amino transferase 26 IU/L 11-34 normal Not Available [address], [address], 12/19/2024 14:28:04 12/20/19 25 12/19/2024 COMPR EHENS KISHAN METAB OLIC PANEL alanine aminotransfe rase 28 IU/L <45 Not Available [address], [address], 12/19/2024 14:28:04 12/20/19 25 12/19/2024 COMPR EHENS KISHAN METAB OLIC PANEL total protein 6.6 g/dL 5.8-8. 1 normal Not Available [address], [address], 12/19/2024 14:28:04 12/20/19 25 12/19/2024 COMPR EHENS KISHAN METAB OLIC PANEL albumin 4.0 g/dL 2.5-5. 0 normal Not Available [address], [address], 12/19/2024 14:28:04 12/20/19 25 12/19/2024 COMPR EHENS KISHAN METAB OLIC PANEL alkaline phosphatase 81 IU/L 40-150 normal Not Available [address] [place], [address], 12/19/2024 14:28:04 12/20/19 25 12/19/2024 PHOSP HORUS phosphorus 2.8 mg/dL 2.5-4. 5 normal Not Available [address], [address], 12/19/2024 14:28:05 07/11/20 24 07/11/2024 MRI, thora cic spine , w/wo contr ast No observ ation record ed. JALEESA Not Available 2023 12:43:12 08/09/20 24 07/12/2024 MRI, sholencho lorri, w/ contr ast No observ ation record ed. jgittzus Bridgette/Lust have it!e l [facility] ([facility]) [address], [place], [address], 09/06/2024 10:53:25 01/17/20 25 01/13/2025 US, renal No observ ation record ed. jgiDroid system masterzus [facility] [address], [place], [address], 01/16/2025 12:01:46 02/10/20 25 02/09/2025 MRI, thora cic spine , w/wo contr ast No observ ation record ed. JALEESA Not Available 2024 11:01:38 Result Notes None recorded. Problems Name Problem SNOMED Code Status Onset Date Resolution Date Notes Provider Name and Address Organization Details Recorded Time Epididyma l swelling 519143855 Active 2022 Murray Reyna MD [address] [facility], [address], [place], [address], [place] - P[place]/WIP 3 14:12:53 Gout 81405795 Active 2023 Murray Reyna MD [address] [facility], [address], [place], [address], [place] 4 08:31:40 Uncontrol led type 2 diabetes mellitus 724022074 Active 2018 Murray Reyna MD [address] [place] [address], [address], [place], [address], [place]IP 9 15:37:28 Steatohep atitis 917580524 Active 2018 Murray Reyna MD [address] [place] [address], [address], [place], [address], [place]/WIP 9 15:37:40 Right cervical root neuropath y 376757524325 400[address] Active 2018 improved Murray Reyna MD [address] [place] [address], [address], [place], [address], [place]IP 9 15:38:08 Mixed hyperlipi demia 326366372 Active 2018 Murray Reyna MD [address] [place] [address], [place] [address], [place], [address], [place]IP 9 15:38:19 Gastroeso phageal reflux disease without esophagit is 507845260 Active 2018 Murray Reyna MD [address] [place] [address], [place], [address], [place]/WIP 9 15:38:29 Polyp of colon 10031508 Active 2018 scope 2010 repeat 2019 repeat 12/25 due 12/28 Murray Reyna MD [address] [place] [address], [place] [address], [place], [address], [place]/WIP 3 11:20:51 Kidney stone 76748049 Active 2018 last 20 years ago Murray Reyna MD [address] [place] [address], [place] [address], [place], [address], [place] 1 14:33:13 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 Procedures Surgical History Date Name Laterality Status Provider Name and Address Organization Details Recorded Time procedure on shoulder completed Murray Reyna MD [address] [place] [address], [place] [address], [place], [address], [place] - PMA/WIP 05/16/2019 15:41:00 Cervical laminoplsty 2/> seg completed Murray Reyna MD [address] [place] [address], [place] [address], [place], [address], [place] - P[place]/WIP 05/16/2019 15:41:13 Vasectomy completed Murray Reyna MD [address] [place] [address], [place] [address], [place], [address], [place] - P[place]/WIP 05/16/2019 15:41:32 Imaging Results None recorded. Procedure Notes None recorded. Medical Equipment None Reported. Allergies No known drug allergies Medications Name Sig Start Date Stop Date Status Note LastModified by Organization Details LastModified Time freestyle luzmaria 14 day/senso r/flash monitorin g system [facility] 09/30 completed Not Available Not Available Not Available glimepiri de 4 mg tabs 11/11 completed Not Available Not Available Not Available simvastat in 10 mg tabs 10/25 completed Not Available Not Available Not Available sure comfort insulin syringe/u -100/0.5m l/31g x 5/16 31g x 5/16 0.5 ml [facility] 11/11 completed Not Available Not Available Not [...] now 1 tab bid per patient renal chely said that as well Not Available Not [...] Available Not Available Not Available Dexcom G7 [employer] active Not Available Not Available Not Available Vitals Date Recorded Body height Body mass index (BMI) Body weight Oxygen saturation Oxygen saturation in Arterial blood by Pulse oximetry Heart rate Systolic And Diastolic Provider Name and Address Organization Details Last Updated DateTime 5 175.26 cm 31.8 kg/m2 38617.5 1 g 97 % 97 % 73 /min 130/79 mm[Hg] Amanda Baker [facility]/WIP 5 12:42:51 Date Recorded Body height Body mass index (BMI) Body weight Oxygen saturation Oxygen saturation in Arterial blood by Pulse oximetry Heart rate Systolic And Diastolic Provider Name and Address Organization Details Last Updated DateTime 4 175.26 cm 29.7 kg/m2 81033.0 7 g 98 % 98 % 60 /min 138/60 mm[Hg] Amanda Baker [facility] - PMA/WIP 4 09:26:35 Date Recorded Body height Body mass index (BMI) Body weight Oxygen saturation Oxygen saturation in Arterial blood by Pulse oximetry Heart rate Systolic And Diastolic Provider Name and Address Organization Details Last Updated DateTime 4 175.26 cm 30.3 kg/m2 27434.4 4 g 98 % 98 % 72 /min 138/88 mm[Hg] Amanda Monteiro-be ach [place] - PMA/WIP 4 10:48:31 Date Recorded Body height Provider Name an d Address Organization Details Last Updated DateTime 09/13/2024 175.26 cm Murray Reyna MD [address] [facility], [address], [place], [address], [place] - PMA/WIP 09/13/2024 08:28:24 Social History [...] 1 completed Not Available [facility] 09/21/2023 13:42:58 COVID-19, mRNA, LNP-S, PF, 100 mcg/0.5mL dose or 50 mcg/0.25mL dose 1 completed Not Available [facility] 09/21/2023 13:42:58 Influenza, split virus, quadrivalent, PF 0 completed Not Available [facility] 09/21/2023 13:42:58 zoster recombinant 0 completed Not Available [facility] 09/21/2023 13:42:58 Influenza, split virus, quadrivalent, PF 1 completed Not Available [facility] 09/21/2023 13:42:58 COVID-19, mRNA, LNP-S, PF, 100 mcg/0.5mL dose or 50 mcg/0.25mL dose 1 completed Not Available [facility] 09/21/2023 13:42:58 COVID-19, mRNA, LNP-S, PF, 100 mcg/0.5mL dose or 50 mcg/0.25mL dose 2 completed Not Available [facility] 09/21/2023 13:42:58 Pneumococcal conjugate PCV20, polysaccharide INV762 conjugate, adjuvant, PF 2 completed Not Available [facility] 09/21/2023 13:42:58 COVID-19, mRNA, LNP-S, bivalent, PF, 50 mcg/0.5 mL or 25mcg/0.25 mL dose 2 completed Not Available [facility] 09/21/2023 13:42:58 Influenza, split virus, quadrivalent, PF 2 completed Not Available [facility] 09/21/2023 13:42:58 Past Encounters Encounter ID Performer Location Encounter Start Date Encounter Closed Date Diagnosis/Indication Diagnosis SNOMED-CT Code Diagnosis ICD10 Code Diagnosis Note [id number] [facility] [place] [address] [place] [address] 05/16/2019 14:40:02 05/17/2019 07:54:59 Essential hypertension 75726864 I10 bp checks, call with results; may need increase of lisinopril Anaplasmosis 50215520 A7 7.49 with vague viral symptoms will recheck tick borne panel Mixed hyperlipidemia 267 228531 E78.2 at goal ; cont simvastati n Uncontroll ed type 2 diabetes mellitus 793205028 E11.65 lantus trulicity f/u endocrine [id number] [facility] [place] [address] [place] [address] 09/13/2019 09:02:23 09/14/2019 07:30:51 Essential hypertension 47549632 I10 bp checks, call with results; may need increase of lisinopril Gastroesop hageal reflux disease without esophagitis 407284912 K21.9 omeprazole Mixed hyperlipidemia 267 665681 E78.2 at goal ; cont simvastati n Uncontroll ed type 2 diabetes mellitus 366347318 E11.65 lantus trulicity f/u endocrine Loss of se nse of smell 87036288 R43.0 ENT eval [id number] Murray Reyna MD [address] [place] [address] 02/21/2020 08:42:01 02/21/2020 14:42:12 Essential hypertension 35037606 I10 bp checks, call with results; increase of lisinopril ; Gastroesop hageal reflux disease without esophagitis 266290462 K21.9 omeprazole Mixed hyperlipidemia 267 898626 E78.2 at goal ; cont simvastati n Uncontroll ed type 2 diabetes mellitus 309636720 E11.65 lantus trulicity f/u endocrine; discussed diet / exercise relationsh ip Anaplasmosis 34521727 A7 7.49 no symptoms [id number] uMrray Reyna MD [address] [address] 06/15/2020 08:18:25 06/15/2020 09:26:11 Essential hypertension 39809021 I10 bp checks, call with results; increase of lisinopril ; Gastroesop hageal reflux disease without esophagitis 136496836 K21.9 omeprazole Mixed hyperlipidemia 267 921495 E78.2 at goal ; cont simvastati n Uncontroll ed type 2 diabetes mellitus 883643651 E11.65 lantus increased to 45; trulicity f/u endocrine; discussed diet / [place] [id number] Murray Reyna MD [address] [address] 10/25/2020 08:04:00 10/25/2020 14:41:29 Essential hypertension 44078213 I10 bp checks, call with results; increase of lisinopril ; Kidney stone 58536668 N2 0.0 none later Polyp of colon 78137444 K63.5 due 2024 Gastroesop hageal reflux disease without esophagitis 604810690 K21.9 omeprazole Mixed hyperlipidemia 267 447075 E78.2 at goal ; cont simvastati n Steatohepatitis 91765020 2 K75.81 lft's nl Uncontroll ed type 2 diabetes mellitus 808221957 E11.65 lantus increased to 45; trulicity f/u endocrine; discussed diet / [place] [id number] Murray Renya MD [address] [place] [address] 02/08/2021 08:07:35 02/08/2021 10:45:34 Essential hypertension 96443555 I10 bp checks, call with results; increase of lisinopril ; Polyp of colon 51139079 K63.5 due 2024 Gastroesop hageal reflux disease without esophagitis 064876888 K21.9 omeprazole Mixed hyperlipidemia 267 461608 E78.2 at goal ; cont simvastati n Uncontroll ed type 2 diabetes mellitus 532289344 E11.65 lantus increased to 45; trulicity f/u endocrine; discussed diet / [place] [id number] Murray Reyna MD [address] [address] 06/14/2021 08:02:35 06/14/2021 08:55:15 Essential hypertension 97797608 I10 bp checks, call with results; increase of lisinopril ; Kidney stone 22314065 N2 0.0 none later Gastroesop hageal reflux disease without esophagitis 166120219 K21.9 omeprazole Mixed hyperlipidemia 267 279427 E78.2 at goal ; cont simvastati n Uncontroll ed type 2 diabetes mellitus 784862896 E11.65 lantus increased to 45; trulicity f/u endocrine; [facility] Steato[facility]itis 23382720 2 [place]75[place] [id number] Murray Reyna MD [address] [address] 11/12/2021 08:04:27 11/12/2021 12:00:59 Kidney stone 92626632 N20.0 none later Polyp of colon 39207879 K63.5 due 2024 Gastroesop hageal reflux disease without esophagitis 416403428 K21.9 omeprazole Mixed hyperlipidemia 267 488154 E78.2 at goal ; cont simvastati n Uncontroll ed type 2 diabetes mellitus 914354972 E11.65 lantus increased to 45; trulicity f/u endocrine; discussed diet / exercise relationsh ipconsider increase in trulicity; patient lives in [place] would like referral to [facility] endocrine [id number] Murray Reyna MD [address] [place] [address] 03/04/2022 08:08:46 03/04/2022 12:05:40 Essential hypertension 62805490 I10 bp checks, call with results; increase of lisinopril ; Kidney stone 28082436 N2 0.0 none later Gastroesop hageal reflux disease without esophagitis 466227635 K21.9 omeprazole Mixed hyperlipidemia 267 179900 E78.2 at goal ; cont simvastati n Uncontroll ed type 2 diabetes mellitus 854268039 E11.65 lantus increased to 45; trulicity f/u endocrine; discussed diet / exercise relationsh ipconsider increase in trulicity; patient lives in [place] would like data sent to new endocrine [id number] Murray Reyna MD [address] [place] [address] 03/13/2022 12:55:43 03/13/2022 14:02:18 [id number] Murray Reyna MD [address] [address] 04/03/2022 11:23:35 04/04/2022 08:51:01 Essential hypertension 33336104 I10 bp checks, call with results; increase of lisinopril ; Mixed hyperlipidemia 267 976014 E78.2 at goal ; cont simvastati n Uncontroll ed type 2 diabetes mellitus 315105281 E11.65 increase trulicitym ay need to reduce glimepirid e if hypoglycem ia prior: lantus increased to 45; trulicity f/u endocrine; discussed diet / exercise relationsh ipconsider increase in trulicity; patient lives in [place] would like data sent to new endocrine Erectile dysfunction 860 026917 F52.21 [id number] Murray Reyna MD [address] [place] [address] 09/30/2022 10:55:09 09/30/2022 12:08:40 Essential hypertension 61747334 I10 bp checks, call with results; increase of lisinopril ; Kidney stone 02977916 N2 0.0 none later Polyp of colon 16361849 K63.5 due 2024 Gastroesop hageal reflux disease without esophagitis 408756215 K21.9 omeprazole Mixed hyperlipidemia 267 834553 E78.2 at goal ; cont simvastati n Right cerv ical root neuropathy 2569399811 9943862 G54.2 Uncontroll ed type 2 diabetes mellitus 640417362 E11.65 increase trulicitym ay need to reduce glimepirid e if hypoglycem ia prior: lantus increased to 45; trulicity f/u endocrine; discussed diet / exercise relationsh ipconsider increase in trulicity; patient lives in [place] would like data sent to new endocrine Steatohepatitis 16328798 2 [place]75.[place] [id number] [facility] [address] [address] 01/12/2023 10:45:43 01/12/2023 11:27:04 Essential hypertension 32076897 I10 bp checks, call with results; increase of lisinopril ; Kidney stone 94937038 N2 0.0 none later Gastroesop hageal reflux disease without esophagitis 820422969 K21.9 omeprazole Mixed hyperlipidemia 267 795842 E78.2 at goal ; cont simvastati n Right cerv ical root neuropathy 8499055046 2596922 G54.2 Steatohepatitis 12400770 2 K75.81 lft's nl Uncontroll ed type 2 diabetes mellitus 343383150 E11.65 increase trulicitym ay need to reduce glimepirid e if hypoglycem ia prior: lantus increased to 45; trulicity f/u endocrine; discussed diet / exercise relationsh ipconsider increase in trulicity; patient lives in [place] would like data sent to new endocrine Spasm of back muscles 20 3430405 M62.830 discussed treatment declines pt at present [id number] MD Francisco Zepeda [address] [place] [address] 03/26/2023 13:12:11 03/26/2023 14:48:09 Essential hypertension 72338256 I10 bp checks, call with results; increase of lisinopril ; Kidney stone 51719773 N2 0.0 none later Gastroesop hageal reflux disease without esophagitis 139668373 K21.9 omeprazole Mixed hyperlipidemia 267 404288 E78.2 at goal ; cont simvastati n Uncontroll ed type 2 diabetes mellitus 912727145 E11.65 increase trulicitym ay need to reduce glimepirid e if hypoglycem ia prior: lantus increased to 45; trulicity f/u endocrine; discussed diet / exercise relationsh ipconsider increase in trulicity; patient lives in [place] would like data sent to new endocrine Epididymal swelling 3008 52221 N50.89 prob cystcheck urine c & s [id number] MD Hung Zepedacarly [place] [address] [address] 11/11/2023 13:43:31 11/12/2023 09:36:34 Essential hypertension 66234860 I10 Medication s: lisinopril 10mg and HCTZ 12.5mg Gastroesop hageal reflux disease without esophagitis 879583923 K21.9 Stable on omeprazole Mixed hyperlipidemia 267 543954 E78.2 at goal ; cont simvastati n Uncontroll ed type 2 diabetes mellitus 937254629 E11.65 Medication s: glimepirid e 4mg bid, lantus 45 units in the night, metformin 1000mg and ozempic 2mg Gout 04893327 M10.9 67-year-ol d male presenting with severe [...] uric acid levels Benign ess ential hypertension 1564134 I10 Medication : lisinopril 10mg [id number] [facility] [address] [facility] [place] [address] 11/19/2023 08:03:33 11/20/2023 08:07:10 Hyperkalemia 34195304 E87.5 elevated potasiumta maria teresa HcTZ 12.5mg Chronic ki dney disease stage 3B 044327943 N18.32 elevated creatinine levelalso uric acid and potasiumGF R 40not on any nephrotoxi c medication sPMHx remarkable for HTN (lisinopri l, HCTZ), T2 DM, HLDpending labs on PTH, vitamin D, phosphorus , microalbum in and repeat CMP, uric acid Essential hypertension 14505183 I10 Medication s: lisinopril 10mg and HCTZ 12.5mg Gastroesop hageal reflux disease without esophagitis 485904630 K21.9 Stable on omeprazole Mixed hyperlipidemia 267 382038 E78.2 at goal ; cont simvastati n Uncontroll ed type 2 diabetes mellitus 405253950 E11.65 Medication s: glimepirid e 4mg bid, lantus 45 units in the night, metformin 1000mg and ozempic 2mg Gout 79198320 M10.9 67-year-ol d male presenting with severe [...] acid levels elevated Benign ess ential hypertension 3304809 I10 Medication : lisinopril 10mg and HctZ 12.5mg [id number] Murray Reyna MD [place] [address] [place] [address] 02/08/2024 12:53:23 02/08/2024 13:49:28 Essential hypertension 73153696 I10 bp checks, call with results; increase of lisinopril ; Kidney stone 33834842 N2 0.0 none later Polyp of colon 27065821 K63.5 due 2025 Gastroesop hageal reflux disease without esophagitis [id number] K21.9 omeprazole Mixed hyperlipidemia 267 934112 E78.2 at goal ; cont simvastati n Steatohepatitis 85572176 2 K75.81 lft's nl Uncontroll ed type 2 diabetes mellitus 443791073 E11.65 ozempicmay need to reduce glimepirid e if hypoglycem ia prior: lantus increased to 45; trulicity f/u endocrine; discussed diet / exercise relationsh ipconsider increase in trulicity; patient lives in [place] would like data sent to [facility] endocrine [address] Tavia Church NP [place] [address] [place] [address] 04/19/2024 09:52:13 04/20/2024 10:27:56 Pain of right shoulder joint [id number] 1735476 M25.511 Hx of right shoulder pain with repair a referral to ortho will be made Cervical radiculopathy 79179380 M54.12 Hx of cervical discectomy in the past increased pain in neck with past few weeks with radicuopat hy down right arm to middle of bicept 31957 Tavia Church NP [address] [place] [address] 05/03/2024 09:11:44 05/03/2024 10:40:57 Pain of right shoulder joint [id number] 3101722 M25.511 Hx of right shoulder pain with repair a referral to ortho will be made Cervical radiculopathy 18595024 M54.12 Hx of cervical discectomy in the past increased pain in neck with past few weeks with radiculopa thy down right arm to middle of bicep He states he did find another place in [facility] that has a open MRI. He states that the [facility] [phone] 00. 75255 Tavia Church NP [address] [place] [address] 05/17/2024 07:50:00 05/17/2024 15:02:46 Pain of right shoulder joint [id number] 7468854 M25.511 Hx of right shoulder pain with repair a referral to ortho will be made Cervical radiculopathy 17756767 M54.12 C5-6 degenerati ve disc disease with [...] states he did find another place in [facility] that has a open MRI. He states that the [employer] [facility] [employer] [phone]. Thyroid nodule 236628877 E04.1 Enlarged thryoid with multiple nodules was noted on a cervical MRI Thoracic back pain 47584 8004 M54.6 C5-6 degenerati ve disc disease with mild central canal stenosis and right c 6 nerve root encroachme nt. C6-7 degenerati ve disc disease with mild central canal stenosis. Enlarged hetergenso u thyroid gland containing multiple nodules. 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 19881 Murray Reyna MD [address] [place] [address] 05/20/2024 08:09:14 05/20/2024 13:51:50 Essential hypertension 54096863 I10 bp checks, call with results; increase of lisinopril ; Kidney stone 20301463 N2 0.0 none later Polyp of colon 50849895 K63.5 due 2025 Gastroesop hageal reflux disease without esophagitis 654085978 K21.9 omeprazole Mixed hyperlipidemia 267 256174 E78.2 at goal ; cont simvastati n Right cerv ical root neuropathy 8557814729 4576955 G54.2 Uncontroll ed type 2 diabetes mellitus 063110403 E11.65 ozempicmay need to reduce glimepirid e if hypoglycem ia prior: lantus increased to 45; trulicity f/u endocrine; discussed diet / exercise relationsh ipconsider increase in trulicity; patient lives in [place] would like data sent to new endocrine Steatohepatitis 59047199 2 K75.81 lft's nl Anxiety 97855624 F41.9 58795 Tavia Church NP [address] [place] [address] 06/07/2024 08:27:55 06/07/2024 15:11:40 Pain of right shoulder joint 7575808255 9697087 M25.511 Hx of right shoulder pain he was seen by ortho He is pending a MRI Cervical radiculopathy 69721063 M54.12 C5-6 degenerati ve disc disease with [...] states he did find another place in [facility] that has a open MRI. He states that the [employer] [facility] . He will be going to [facility] for his repeat MRI on Jul Thyroid nodule 452761800 E04.1 Enlarged thryoid with multiple nodules was [...] year to continue to document stability recommende [place]. Thoracic back pain 74336 8004 M54.6 C5-6 degenerati ve disc disease with mild central canal stenosis and right c 6 nerve root encroachme nt. C6-7 degenerati ve disc disease with mild central canal stenosis. Enlarged hetergenso u thyroid gland containing multiple nodules. 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 25088 Tavia Church NP [address] [address] 07/12/2024 08:10:23 07/12/2024 14:43:19 Pain of right shoulder joint 2314457198 6836130 M25.511 Hx of right shoulder pain he was seen by ortho He is pending a MRI Cervical radiculopathy 71660341 M54.12 C5-6 degenerati ve disc disease with [...] states he did find another place in [facility] that has a open MRI. He states that the [facility] [phone] 00. He will be going to [facility] for his repeat MRI on Jul Thyroid nodule 694484368 E04.1 Enlarged thryoid with multiple nodules was [...] document stability recommende d. Thoracic back pain 24960 8004 M54.6 C5-6 degenerati ve disc disease [...] recommence d which was done withtout contrast 32057 [facility] [place] [address] [place] [address] 08/09/2024 09:23:23 08/09/2024 10:01:44 Essential hypertension 06671906 I10 bp checks, call with results; increase of lisinopril ; Gastroesop hageal reflux disease without esophagitis 202859348 K21.9 omeprazole Kidney stone 50374078 N2 0.0 none later Mixed hyperlipidemia 267 665162 E78.2 at goal ; cont simvastati n Uncontroll ed type 2 diabetes mellitus 018274081 E11.65 ozempicmay need to reduce glimepirid e if hypoglycem ia prior: lantus increased to 45; trulicity f/u endocrine; discussed diet / exercise relationsh ipconsider increase in trulicity; patient lives in [place] would like data sent to [facility] [address] MD Hung Zepedacarly [place] [address] [place] [address] 09/06/2024 10:46:31 09/07/2024 10:44:29 Essential hypertension 71791931 I10 bp checks, call with results; increase of lisinopril ; Kidney stone 87106517 N2 0.0 none later Gastroesop hageal reflux disease without esophagitis 373581367 K21.9 omeprazole Mixed hyperlipidemia 267 781367 E78.2 at goal ; cont simvastati n Right cerv ical root neuropathy 6273491958 4849997 G54.2 Steatohepatitis 99229019 2 K75.81 lft's nl Uncontroll ed type 2 diabetes mellitus 784577971 E11.65 discussed treatment of increased bs with prednisone ozempicmay need to reduce glimepirid e if hypoglycem ia prior: lantus increased to 45; trulicity f/u endocrine; discussed diet / exercise relationsh ipconsider increase in trulicity; patient lives in [place] would like data sent to new endocrine Acute gout 002236145 M10 .9 58618 Murray Reyna MD [facility] [place] [address] [place] [address] 09/13/2024 08:02:48 09/13/2024 08:44:44 Essential hypertension 63905425 I10 bp checks, call with results; increase of lisinopril ; Gastroesop hageal reflux disease without esophagitis 816308565 K21.9 omeprazole Mixed hyperlipidemia 267 756335 E78.2 at goal ; cont simvastati n Steatohepatitis 86033474 2 K75.81 lft's nl Uncontroll ed type 2 diabetes mellitus 805403943 E11.65 discussed treatment of increased bs with prednisone ozempicmay need to reduce glimepirid e if hypoglycem ia prior: lantus increased to 45; trulicity f/u endocrine; discussed diet / exercise relationsh ipconsider increase in trulicity; patient lives in [place] would like data sent to [facility] Gout 56208153 M10.9 with prednisone 20 mg qd gout 75% better but blood sugar difficult to controlwil l try bid colchicine 69141 MD Francisco Zepeda [address] [place] [address] 12/27/2024 12:38:02 12/27/2024 13:45:45 Essential hypertension 33069036 I10 bp checks, call with results; increase of lisinopril ; Mixed hyperlipidemia 267 886748 E78.2 at goal ; cont simvastati n Gastroesop hageal reflux disease without esophagitis 555086697 K21.9 omeprazole Uncontroll ed type 2 diabetes mellitus 081136809 E11.65 discussed treatment of increased bs with prednisone ozempicmay need to reduce glimepirid e if hypoglycem ia prior: lantus increased to 45; trulicity f/u endocrine; discussed diet / exercise relationsh ipconsider increase in trulicity; patient lives in [place] [facility] Steatohepatitis 21303931 2 K75.81 lft's nl Kidney stone 23612784 N2 0.0 none later Gout 33714087 M10.9 with prednisone 20 mg qd gout 75% better but blood sugar difficult to controlwil l try bid colchicine Right cerv ical root neuropathy 9179330357 3127676 G54.2 surgery scheduled Health Concerns Section Related Observation LastModified by Organization Detai ls LastModified Time None Recorded Concern Status LastModified by Organization Details LastModified Time None Recorded Advance Directives Directive None Recorded Payers Insurance Date Sequence Insurance Name Policy Number Policy Valladares Covered Member ID Valladares Member ID Guarantor Name 04/24/2023 1 [facility] [id number] Lonny Vallejo [id number] Lonny Vallejo 01/12/2023 1 [facility] [facility] [id number] Nicole Vallejo [id number] Lonny Vallejo 12/24/2024 2 [employer] (MEDICARE SUPPLEMENT) Lonny Vallejo [id number] Lonny Vallejo 02/23/2025 1 [place] [facility] Lonny Vallejo [id number] Lonny Vallejo Notes Date Note Type Note [...] with the pain. Tavia Church NP [address] [facility], [address], [place], [address], [place] - PMA/WIP 07/12/2024 13:49:18 08/09/2024 text/html doing well;still waiting for shoulder MRI results;now on low K+ dietbp goodhad shoulder MRI in [place] no results yet;having PT for shoulderHCTZ stoppedthyroid has multiple nodules Murray Reyna MD [address] [facility], [address], [place], [address], [place] PMA/WIP 08/09/2024 09:59:18 09/06/2024 text/html doing well excep t right leg swelling and pain for one month;no fever;worse in the past 2-3 days; Murray Reyna MD [address] [place] [address], [place] [address], [place], [address], [place] PMA/WIP 09/06/2024 11:12:43 09/13/2024 text/html 75% better with prednisone but blood sugars up and down prior:doing well except right leg swelling and pain for one month;no fever;worse in the past 2-3 days; Murray Reyna MD [address] [place] [address], [place] [address], [place], [address], [place] PMA/WIP 09/13/2024 08:39:42 12/27/2024 text/html preop for right cervical surgery at [facility] Dr Moore;pain right upper arm and neckno numbnesshad prior surgery on the same shoulder/neckdoing well except for shoulder pain;saw renal recently for pre-opbs review average Murray Reyna MD [address] [place] [address], [place], [address], [place] - PMA/WIP 12/27/2024 13:31:56
== END 2025-04-13 11:31 | disposition home or self-care (01) ==
LOC: HO.HNS 10:45
PROVIDERS: PCP Internal Medicine; Visit Provider Physician Assistant
DX: M54.12 Radiculopathy, cervical region (principal)
CPT/HCPCS: 99024

== ENCOUNTER → 2025-04-13 10:50 | Outpatient (BNV) | payer MEDICARE, SELFPAY | PROVIDERS: Visit Provider Radiology Diagnostic Radiology | DX: M47.892 Other spondylosis, cervical region (principal) | CPT/HCPCS: 72050 ==